=== PATIENT | female | born 1980 | race Caucasian/White ===

== ENCOUNTER 2018-08-18 04:40 | Emergency (ER) | payer MEDICAID ==
[~2018-08-18] VITALS: Ht 167.6 cm; Wt 116.6 kg
[2018-08-18 04:43] VITALS: BP 128/88
[2018-08-18] MEDS ORDERED: NACL 0.9% 1,000 ML IV ONE (05:05)
[2018-08-18] MEDS ORDERED: MORPHINE SULFATE 4 MG/ML SYR IVP ONE ×2 (05:05→06:05)
[2018-08-18 06:39] VITALS: BP 136/87
== END 2018-08-18 06:35 | disposition home or self-care (01) ==
LOC: MED 04:40
DX: R10.9 Unspecified abdominal pain (principal); R11.2 Nausea with vomiting, unspecified; E11.9 Type 2 diabetes mellitus without complications; Z88.6 Allergy status to analgesic agent
CPT/HCPCS: 81002; 81025; 82948; 96361; 96374; 96376; 99284; J2270

== ENCOUNTER 2018-08-22 17:43 | Emergency (ER) | payer MEDICAID ==
[~2018-08-22] VITALS: Ht 167.6 cm; Wt 107.0 kg
[2018-08-22 17:48] VITALS: BP 122/75
[2018-08-22 20:04] LABS: APPEARANCE,URINE CLEAR (CLEAR); COLOR,URINE LIGHT YELLOW (YELLOW); PH,URINE 7.5 (5.0-9.0)
[2018-08-22 20:05] LABS: BILIRUBIN,URINE NEGATIVE (NEGATIVE); BLOOD, URINE 2+ (NEGATIVE); LEUKOCYTE ESTERASE ,URINE NEGATIVE (NEGATIVE); NITRITE, URINE NEGATIVE (NEGATIVE); UGLUCOSE 3+ (NEGATIVE)
[2018-08-22 20:13] LABS: RBC,URINE 80-100 /HPF (0-5)
[2018-08-22] MEDS ORDERED: INSULIN REGULAR, HUMAN 100 UNIT/ML VIAL IV ONE ×2 (20:20→21:30)
[2018-08-22] MEDS ORDERED: MORPHINE SULFATE 4 MG/ML SYR IVP ONE ×2 (20:20→22:30)
[2018-08-22] MEDS ORDERED: ONDANSETRON 4 MG/2 ML VIAL IVP ONE (20:20)
[2018-08-22] MEDS ORDERED: NACL 0.9% 1,000 ML IV ONE (20:20)
[2018-08-22 21:22] LABS: BASOPHILS # (AUTO) 0.1 K/uL (0.00-0.22); BASOPHILS % (AUTO) 1.3 % (0.0-2.0); EOSINOPHILS # (AUTO) 0.1 K/uL (0-0.4); EOSINOPHILS % (AUTO) 1.3 % (0.0-4.0); HEMATOCRIT 37.5 % (36-48); LYMPHOCYTES # (AUTO) 1.4 K/uL (2.5-16.5); LYMPHOCYTES % (AUTO) 24.5 % (20.5-51.1); MEAN CORPUSCULAR HEMOGLOBIN 23 pg (27-31); MEAN CORPUSCULAR HGB CONC 32 g/dL (33-37); MEAN CORPUSCULAR VOLUME 73.3 fL (80-94); MONOCYTES # (AUTO) 0.4 K/uL (0.8-1.0); MONOCYTES % (AUTO) 6.6 % (1.7-9.3); NEUTROPHILS # (AUTO) 3.9 K/uL (1.8-7.7); NEUTROPHILS % (AUTO) 66.3 % (42.2-75.2); PLATELET COUNT (AUTO) 153 K/uL (140-450); RED BLOOD CELL COUNT(AUTO) 5.11 MIL/uL (4.20-5.40); RED CELL DISTRIBUTION WIDTH 16.7 % (11.6-13.7); WHITE BLOOD COUNT (AUTO) 5.9 K/uL (4.8-10.8)
[2018-08-22 21:32] LABS: ANION GAP 10.2 (8-16); CARBON DIOXIDE 27.7 mmol/L (21-32); CREATININE 0.8 mg/dL (0.6-1.3); POTASSIUM 3.9 mmol/L (3.5-5.1)
[2018-08-22 21:39] LABS: ALBUMIN 3.5 g/dL (3.4-5.0); TOTAL BILIRUBIN 0.4 mg/dL (0.0-1.0)
[2018-08-22 23:15] VITALS: BP 128/82
== END 2018-08-22 23:15 | disposition home or self-care (01) ==
LOC: MED 17:46
DX: N13.2 Hydronephrosis with renal and ureteral calculous obstruction (principal); E11.65 Type 2 diabetes mellitus with hyperglycemia; Z88.6 Allergy status to analgesic agent
CPT/HCPCS: 36415; 74176; 80053; 81001; 81025; 82948; 85025; 87086; 96361; 96374; 96375; 96376; 99285; J1815; J2270; J2405

== ENCOUNTER 2018-09-21 00:45 | Emergency (ER) | payer MEDICAID ==
[~2018-09-21] VITALS: Ht 167.6 cm; Wt 116.6 kg
[2018-09-21 00:49] VITALS: BP 116/79
[2018-09-21 01:56] LABS: BASOPHILS # (AUTO) 0.1 K/uL (0.00-0.22); BASOPHILS % (AUTO) 1.4 % (0.0-2.0); EOSINOPHILS # (AUTO) 0.1 K/uL (0-0.4); EOSINOPHILS % (AUTO) 1.9 % (0.0-4.0); HEMATOCRIT 35.1 % (36-48); HEMOGLOBIN 11.2 g/dL (12.0-16.0); LYMPHOCYTES # (AUTO) 1.7 K/uL (2.5-16.5); LYMPHOCYTES % (AUTO) 34.7 % (20.5-51.1); MEAN CORPUSCULAR HEMOGLOBIN 23 pg (27-31); MEAN CORPUSCULAR HGB CONC 32 g/dL (33-37); MEAN CORPUSCULAR VOLUME 72.9 fL (80-94); MONOCYTES # (AUTO) 0.5 K/uL (0.8-1.0); MONOCYTES % (AUTO) 9.5 % (1.7-9.3); NEUTROPHILS # (AUTO) 2.5 K/uL (1.8-7.7); NEUTROPHILS % (AUTO) 52.5 % (42.2-75.2); PLATELET COUNT (AUTO) 150 K/uL (140-450); RED BLOOD CELL COUNT(AUTO) 4.81 MIL/uL (4.20-5.40); RED CELL DISTRIBUTION WIDTH 16.2 % (11.6-13.7); WHITE BLOOD COUNT (AUTO) 4.8 K/uL (4.8-10.8)
[2018-09-21] MEDS: MORPHINE SULFATE 4 MG/ML SYR IVP ONE (02:02)
[2018-09-21] MEDS: ONDANSETRON 4 MG/2 ML VIAL IVP ONE (02:02)
[2018-09-21] MEDS: NACL 0.9% 1,000 ML IV ONE (02:02)
[2018-09-21 02:08] LABS: ANION GAP 10.6 (8-16); CARBON DIOXIDE 30.6 mmol/L (21-32); POTASSIUM 4.2 mmol/L (3.5-5.1)
[2018-09-21 02:54] VITALS: BP 116/79
[2018-09-21 03:16] LABS: APPEARANCE,URINE SL CLOUDY (CLEAR); BILIRUBIN,URINE NEGATIVE (NEGATIVE); BLOOD, URINE LARGE (NEGATIVE); COLOR,URINE YELLOW (YELLOW); LEUKOCYTE ESTERASE ,URINE NEGATIVE (NEGATIVE); NITRITE, URINE NEGATIVE (NEGATIVE); UGLUCOSE >=1000 (NEGATIVE)
[2018-09-21 03:19] LABS: RBC,URINE TOO NUMEROUS TO COUN /HPF (0-5); WBC,URINE TOO MANY TO COUNT /HPF (0-5)
== END 2018-09-21 02:55 | disposition home or self-care (01) ==
LOC: MED 00:45
DX: N20.2 Calculus of kidney with calculus of ureter (principal); F11.10 Opioid abuse, uncomplicated; E11.9 Type 2 diabetes mellitus without complications; Z88.6 Allergy status to analgesic agent
CPT/HCPCS: 36415; 80048; 81001; 81025; 85025; 87086; 96361; 96374; 96375; 99283; J2270; J2405

== ENCOUNTER 2018-10-01 21:42 | Emergency (ER) | payer MEDICAID ==
[~2018-10-01] VITALS: Ht 167.6 cm; Wt 116.6 kg
[2018-10-01 22:00] VITALS: BP 139/90
--- NOTE | 2018-10-01 22:00 | NUR ---
TO BED # 10 AMBULATORY , REPORT GIVEN TO DEISI ZEPEDA
--- NOTE | 2018-10-01 22:25 | NUR ---
DR PIZANO AT BEDSIDE EVALUATING PT .
--- NOTE | 2018-10-01 22:25 | NUR ---
PT BIB SELF C/O LEFT LOWER FLANK PAIN AND N/V FOR THE PAST 2 HOURS. PT ALSO HAS URINARY FREQUENCY AND BURNING. NO TRAUMA TO AFFECTED AREA. PT SITTING IN BED, APPEARS TO BE IN NO ACUTE DISTRESS. PMH KIDNEY STONES , DM
[2018-10-01] MEDS ORDERED: NACL 0.9% 1,000 ML IV ONE (22:32)
[2018-10-01] MEDS ORDERED: ONDANSETRON 4 MG/2 ML VIAL IVP ONE (22:35)
[2018-10-01] MEDS ORDERED: MORPHINE SULFATE 4 MG/ML SYR IVP ONE (22:35)
[2018-10-01] MEDS ORDERED: diphenhydrAMINE 50 MG/ML VIAL IVP ONE (22:35)
[2018-10-01] MEDS ORDERED: KETAMINE 10 MG/ML UD SYR **ER IVP ONE (23:30)
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
--- NOTE | 2018-10-02 00:59 | NUR ---
Patient discharged with v/s stable. Written and verbal after care instructions given and explained. Patient alert, oriented and verbalized understanding of instructions. Ambulatory with steady gait. All questions addressed prior to discharge. ID band removed. Patient advised to follow up with PMD. Rx of TYLENOL, ZOFRAN given. Patient educated on indication of medication including possible reaction and side effects. Opportunity to ask questions provided and answered.
[2018-10-02 01:00] VITALS: BP 138/91
== END 2018-10-02 01:00 | disposition home or self-care (01) ==
LOC: MED 21:42
DX: R10.9 Unspecified abdominal pain (principal); R35.8 Other polyuria; R11.2 Nausea with vomiting, unspecified; Z88.8 Allergy status to other drugs, medicaments and biological substances
CPT/HCPCS: 81002; 81025; 96361; 96374; 96375; 99283; J1200; J2270; J2405; J7030

== ENCOUNTER 2021-03-22 12:44 | Emergency (ER) | payer MEDICAID ==
[~2021-03-22] VITALS: Ht 167.6 cm; Wt 111.1 kg
[2021-03-22 12:48] VITALS: BP 124/78
[2021-03-22] MEDS ORDERED: MORPHINE SULFATE 4 MG/ML SYR IVP ONE (12:55)
[2021-03-22] MEDS ORDERED: NACL 0.9% 1,000 ML IV ONE ×2 (12:55→15:00)
[2021-03-22 13:19] LABS: APPEARANCE,URINE HAZY (CLEAR); BILIRUBIN,URINE NEGATIVE (NEGATIVE); BLOOD, URINE NEGATIVE (NEGATIVE); COLOR,URINE YELLOW (YELLOW); NITRITE, URINE POSITIVE (NEGATIVE); PH,URINE 6.5 (5.0-9.0); UGLUCOSE 3+ (NEGATIVE)
[2021-03-22 13:24] LABS: RBC,URINE 0-5 /HPF (0-5)
[2021-03-22 13:25] LABS: LEUKOCYTE ESTERASE ,URINE 1+ (NEGATIVE)
[2021-03-22 13:25] LABS: BASOPHILS % (AUTO) 0.6 % (0.0-2.0); EOSINOPHILS # (AUTO) 0.1 K/uL (0-0.4); EOSINOPHILS % (AUTO) 1.3 % (0.0-4.0); HEMATOCRIT 37.1 % (36-48); LYMPHOCYTES % (AUTO) 16.2 % (20.5-51.1); MEAN CORPUSCULAR HEMOGLOBIN 23 pg (27-31); MEAN CORPUSCULAR HGB CONC 32 g/dL (33-37); MEAN CORPUSCULAR VOLUME 72.3 fL (80-94); MONOCYTES # (AUTO) 0.4 K/uL (0.8-1.0); MONOCYTES % (AUTO) 5.8 % (1.7-9.3); NEUTROPHILS # (AUTO) 4.9 K/uL (1.8-7.7); NEUTROPHILS % (AUTO) 76.1 % (42.2-75.2); PLATELET COUNT (AUTO) 183 K/uL (140-450); RED BLOOD CELL COUNT(AUTO) 5.13 MIL/uL (4.20-5.40); RED CELL DISTRIBUTION WIDTH 18.5 % (11.6-13.7); WHITE BLOOD COUNT (AUTO) 6.4 K/uL (4.8-10.8)
[2021-03-22 13:36] LABS: ANION GAP 14.7 (8-16); CARBON DIOXIDE 25.6 mmol/L (21-32); CREATININE 1.1 mg/dL (0.6-1.3); POTASSIUM 4.3 mmol/L (3.5-5.1)
[2021-03-22] MEDS ORDERED: ONDANSETRON 4 MG ODT PO ONE (14:55)
[2021-03-22] MEDS ORDERED: HYDROcodone/APAP 5/325 MG 1 TAB TAB PO ONE (14:55)
[2021-03-22] MEDS ORDERED: INSULIN REGULAR, HUMAN 100 UNIT/ML VIAL SUBQ ONE (15:00)
[2021-03-22] MEDS ORDERED: cefTRIAXone 1,000 MG VIAL ONE (15:14)
[2021-03-22] MEDS ORDERED: SULF-59 PO (17:11)
[2021-03-22] MEDS ORDERED: ONDA-24 PO (17:11)
[2021-03-22] MEDS ORDERED: ACET-8386 PO (17:11)
[2021-03-22 17:28] VITALS: BP 123/84
[2021-03-23] MEDS ORDERED: INSU100I7 SQ (13:15)
== END 2021-03-22 17:28 | disposition home or self-care (01) ==
LOC: MED 12:44
DX: N39.0 Urinary tract infection, site not specified (principal); N23 Unspecified renal colic; E11.9 Type 2 diabetes mellitus without complications; Z87.442 Personal history of urinary calculi; Z98.890 Other specified postprocedural states; Z88.6 Allergy status to analgesic agent; Z88.8 Allergy status to other drugs, medicaments and biological substances
CPT/HCPCS: 36415; 76770; 80048; 81001; 81025; 85025; 87040; 87086; 96361; 96365; 96372; 96375; 99285; J0696; J1815; J2270; J7030; Q0162

== ENCOUNTER 2021-03-23 10:48 | Emergency (ER) | payer MEDICAID ==
[~2021-03-23] VITALS: Ht 167.6 cm; Wt 111.1 kg
[~2021-03-23 10:48] MED LIST: ACET-8386 PO; ONDA-24 PO; SULF-59 PO
--- NOTE | 2021-03-23 10:48 | NUR ---
Patient BIBA BLS, transferred to bed 4. RN evaluating the patient at bedside.
[2021-03-23 10:55] VITALS: BP 114/65
--- NOTE | 2021-03-23 10:55 | NUR ---
41 y/o F BIBA with c/c left flank pain and dysuria. Patient states she was seen here yesterday and diagnosed with kidney stones and prescribed antibiotics and Pollock for pain management. Patient returned today stating worsening symptoms; states she has not been able to get her prescription filled. Patient reports left flank pain 8/10, stabbing/constant, non-radiating. Reports it feels similar to kidney stones in the past and alleviates with laying down. Pt states associated nausea, vomiting x 2 episodes today. Denies SOB, chest pain, dizziness, fatigue, headache, cough. personnel monitor in place. Respirations even/unlabored. Bed locked in lowest position, side rails x1, call light in reach. PMH: Kidney stones, DM Meds: Insulin basaglar, metformin, Insulin Humalin R Allergies: Ibuprofen, ketorolac Sx: 3 lithotripsies
[2021-03-23] MEDS ORDERED: MORPHINE SULFATE 4 MG/ML SYR IVP ONE (11:00)
[2021-03-23] MEDS ORDERED: NACL 0.9% 1,000 ML IV SCH (11:00)
[2021-03-23] MEDS ORDERED: ONDANSETRON 4 MG/2 ML VIAL IVP ONE (11:00)
--- NOTE | 2021-03-23 11:11 | NUR ---
Lab at bedside for blood draw.
--- NOTE | 2021-03-23 11:11 | NUR ---
UA sample collected, handed to CPT Laura at ER bedside.
--- NOTE | 2021-03-23 11:14 | NUR ---
Dr. Zabala is evaluating the patient at bedside.
[2021-03-23 11:18] LABS: BASOPHILS # (AUTO) 0.1 K/uL (0.00-0.22); BASOPHILS % (AUTO) 0.9 % (0.0-2.0); EOSINOPHILS # (AUTO) 0.1 K/uL (0-0.4); EOSINOPHILS % (AUTO) 1.6 % (0.0-4.0); HEMATOCRIT 36.6 % (36-48); HEMOGLOBIN 11.8 g/dL (12.0-16.0); LYMPHOCYTES # (AUTO) 1.1 K/uL (2.5-16.5); LYMPHOCYTES % (AUTO) 16.2 % (20.5-51.1); MEAN CORPUSCULAR HEMOGLOBIN 23 pg (27-31); MEAN CORPUSCULAR HGB CONC 32 g/dL (33-37); MONOCYTES # (AUTO) 0.4 K/uL (0.8-1.0); NEUTROPHILS % (AUTO) 75.3 % (42.2-75.2); PLATELET COUNT (AUTO) 166 K/uL (140-450); RED BLOOD CELL COUNT(AUTO) 5.02 MIL/uL (4.20-5.40); RED CELL DISTRIBUTION WIDTH 18.8 % (11.6-13.7); WHITE BLOOD COUNT (AUTO) 6.7 K/uL (4.8-10.8)
[2021-03-23 11:18] LABS: BILIRUBIN,URINE NEGATIVE (NEGATIVE); BLOOD, URINE NEGATIVE (NEGATIVE); COLOR,URINE YELLOW (YELLOW); NITRITE, URINE NEGATIVE (NEGATIVE); PH,URINE 6.5 (5.0-9.0); UGLUCOSE 3+ (NEGATIVE)
--- NOTE | 2021-03-23 11:20 | NUR ---
Patient transported to CT via gurney.
[2021-03-23 11:23] LABS: APPEARANCE,URINE SLIGHTLY HAZY (CLEAR); LEUKOCYTE ESTERASE ,URINE 1+ (NEGATIVE); RBC,URINE 0-5 /HPF (0-5)
[2021-03-23 11:30] LABS: ANION GAP 13.1 (8-16); CREATININE 1.1 mg/dL (0.6-1.3); POTASSIUM 4.1 mmol/L (3.5-5.1)
--- NOTE | 2021-03-23 11:30 | NUR ---
Patient returned from CT via [facility].
[2021-03-23] MEDS ORDERED: INSULIN REGULAR, HUMAN 100 UNIT/ML VIAL SUBQ ONE (11:50)
[2021-03-23] MEDS ORDERED: cefTRIAXone 1,000 MG VIAL ONE (11:53)
[2021-03-23] MEDS ORDERED: fentaNYL citrate 0.05 MG/ML VIAL IVP ONE (12:15)
--- NOTE | 2021-03-23 12:42 | NUR ---
DR JOY AT BEDSIDE RE-EVALUATING PATIENT
--- NOTE | 2021-03-23 12:54 | NUR ---
Patient states positive relief after Fentanyl; 5/10 at this time no nausea. rooming house operator remains in place. Bed locked in lowest position, side rails x 1, call light in reach.
--- NOTE | 2021-03-23 12:55 | NUR ---
Pt states ran out of Insulin Basaglar 25 Units before bedtime; requesting prescrption. Dr. Zabala made aware.
[2021-03-23] MEDS ORDERED: INSU100I7 SQ (13:15)
[2021-03-23 13:40] VITALS: BP 113/79
--- NOTE | 2021-03-23 13:40 | NUR ---
Patient discharged with v/s stable. Written and verbal after care instructions given and explained. Patient alert, oriented and verbalized understanding of instructions. Ambulatory with steady gait. All questions addressed prior to discharge. ID band removed. Patient advised to follow up with PMD. Rx of Insulin Glargine given. Patient educated on indication of medication including possible reaction and side effects. Opportunity to ask questions provided and answered.
== END 2021-03-23 13:40 | disposition home or self-care (01) ==
LOC: MED 10:48
DX: N20.0 Calculus of kidney (principal); E11.9 Type 2 diabetes mellitus without complications; L98.8 Other specified disorders of the skin and subcutaneous tissue; Z87.442 Personal history of urinary calculi; Z79.899 Other long term (current) drug therapy; Z98.890 Other specified postprocedural states; Z88.8 Allergy status to other drugs, medicaments and biological substances
CPT/HCPCS: 36415; 74176; 80048; 81001; 85025; 87040; 96361; 96365; 96372; 96375; 99284; J0696; J1815; J2270; J2405; J3010; J7030

== ENCOUNTER 2021-04-05 12:48 | Emergency (ER) | payer MEDICAID ==
[~2021-04-05] VITALS: Ht 167.6 cm; Wt 113.9 kg
[~2021-04-05 12:48] MED LIST changes: +INSU100I7 SQ
[2021-04-05 12:49] VITALS: BP 142/86
--- NOTE | 2021-04-05 12:49 | NUR ---
Patient to bed 10 by [facility] ambulance.
--- NOTE | 2021-04-05 13:17 | NUR ---
41 YEAR OLD FEMALE COMPLAINS OF LEFT FLANK PAIN X 1 HOUR. PT DENIES CHANGES IN URINATION, DENIES N/V/D. PT STATES SHE HAS HISTORY OF KIDNEY STONES AND FEELING PREVIOUS SIMILAR SYMPTOMS. PT AOX4, BREATHING EVEN AND UNLABORED, SKIN WARM AND DRY. BED IN LOWEST POSITION, LOCKED, BED RAIL UPX1. PMH - DM2, KIDNEY STONES, NEUROPATHY ALLERGIES - MOTRIN, TORADOL
[2021-04-05] MEDS ORDERED: ONDANSETRON 4 MG ODT PO ONE (13:20)
[2021-04-05] MEDS ORDERED: HYDROcodone/APAP 5/325 MG 1 TAB TAB PO ONE (13:20)
[2021-04-05 13:33] LABS: BASOPHILS # (AUTO) 0.1 K/uL (0.00-0.22); BASOPHILS % (AUTO) 1.1 % (0.0-2.0); EOSINOPHILS # (AUTO) 0.1 K/uL (0-0.4); EOSINOPHILS % (AUTO) 2.2 % (0.0-4.0); HEMOGLOBIN 11.3 g/dL (12.0-16.0); LYMPHOCYTES # (AUTO) 1.1 K/uL (2.5-16.5); LYMPHOCYTES % (AUTO) 21.3 % (20.5-51.1); MEAN CORPUSCULAR HEMOGLOBIN 24 pg (27-31); MEAN CORPUSCULAR HGB CONC 32 g/dL (33-37); MEAN CORPUSCULAR VOLUME 72.7 fL (80-94); MONOCYTES # (AUTO) 0.3 K/uL (0.8-1.0); MONOCYTES % (AUTO) 5.9 % (1.7-9.3); NEUTROPHILS # (AUTO) 3.4 K/uL (1.8-7.7); NEUTROPHILS % (AUTO) 69.5 % (42.2-75.2); PLATELET COUNT (AUTO) 170 K/uL (140-450); RED BLOOD CELL COUNT(AUTO) 4.81 MIL/uL (4.20-5.40); RED CELL DISTRIBUTION WIDTH 18.6 % (11.6-13.7); WHITE BLOOD COUNT (AUTO) 4.9 K/uL (4.8-10.8)
[2021-04-05 13:40] LABS: ANION GAP 14.9 (8-16); CARBON DIOXIDE 24.3 mmol/L (21-32); POTASSIUM 4.2 mmol/L (3.5-5.1)
[2021-04-05 13:46] LABS: ALBUMIN 3.2 g/dL (3.4-5.0); TOTAL BILIRUBIN 0.4 mg/dL (0.0-1.0)
[2021-04-05] MEDS ORDERED: MIRABULK PO (14:02)
[2021-04-05] MEDS ORDERED: ACET-8386 PO (14:24)
[2021-04-05 14:32] VITALS: BP 142/86
[2021-04-05] MEDS ORDERED: TAMS0.4C96 PO (14:33)
--- NOTE | 2021-04-05 14:33 | NUR ---
Patient discharged with v/s stable. Written and verbal after care instructions about flank pain given and explained. Patient alert, oriented and verbalized understanding of instructions. Ambulatory with steady gait. All questions addressed prior to discharge. ID band removed. Patient advised to follow up with PMD. Rx of norco given. Patient educated on indication of medication including possible reaction and side effects. Opportunity to ask questions provided and answered.
== END 2021-04-05 14:33 | disposition home or self-care (01) ==
LOC: MED 12:48
DX: N12 Tubulo-interstitial nephritis, not specified as acute or chronic (principal); N20.0 Calculus of kidney; Z76.0 Encounter for issue of repeat prescription
CPT/HCPCS: 36415; 80053; 81002; 81025; 85025; 99283; Q0162

== ENCOUNTER 2021-04-14 12:05 | Emergency (ER) | payer MEDICAID ==
[~2021-04-14] VITALS: Ht 180.3 cm; Wt 112.9 kg
[~2021-04-14 12:05] MED LIST changes: +TAMS0.4C96 PO
--- NOTE | 2021-04-14 12:05 | NUR ---
PATIENT TAKEN TO ER BED 6 BY EMS
--- NOTE | 2021-04-14 12:08 | NUR ---
41 Y/O FEMALE BIBA C/O LEFT FLANK PAIN WITH DYSURIA SINCE TODAY. PT STATES CHRONIC FLANK PAIN BUT WORSE TODAY. STATES 9/10 SHARP PAIN IN LEFT FLANK WITH PAINFUL URINATION. PT STATES NAUSEA WITH ONE EPISODE OF VOMITING TODAY. SKIN WARM, DRY, INTACT. VSS MEDHX: DM, ANXIETY, DEPRESSION
[2021-04-14 12:10] VITALS: BP 130/70
--- NOTE | 2021-04-14 12:45 | NUR ---
DR MESA AT BEDSIDE EVALUATING PATIENT
[2021-04-14] MEDS ORDERED: MORPHINE SULFATE 4 MG/ML SYR IVP ONE (12:50)
[2021-04-14] MEDS ORDERED: ONDANSETRON 4 MG/2 ML VIAL IVP ONE (12:50)
[2021-04-14] MEDS ORDERED: NACL 0.9% 1,000 ML IV ONE (12:50)
[2021-04-14 13:23] LABS: BASOPHILS % (AUTO) 0.9 % (0.0-2.0); EOSINOPHILS # (AUTO) 0.1 K/uL (0-0.4); EOSINOPHILS % (AUTO) 2.9 % (0.0-4.0); HEMOGLOBIN 10.9 g/dL (12.0-16.0); LYMPHOCYTES # (AUTO) 1.4 K/uL (2.5-16.5); LYMPHOCYTES % (AUTO) 30.1 % (20.5-51.1); MEAN CORPUSCULAR HEMOGLOBIN 24 pg (27-31); MEAN CORPUSCULAR HGB CONC 33 g/dL (33-37); MEAN CORPUSCULAR VOLUME 72.5 fL (80-94); MONOCYTES # (AUTO) 0.4 K/uL (0.8-1.0); MONOCYTES % (AUTO) 7.8 % (1.7-9.3); NEUTROPHILS # (AUTO) 2.8 K/uL (1.8-7.7); NEUTROPHILS % (AUTO) 58.3 % (42.2-75.2); PLATELET COUNT (AUTO) 142 K/uL (140-450); RED BLOOD CELL COUNT(AUTO) 4.55 MIL/uL (4.20-5.40); RED CELL DISTRIBUTION WIDTH 18.5 % (11.6-13.7); WHITE BLOOD COUNT (AUTO) 4.8 K/uL (4.8-10.8)
[2021-04-14 13:39] LABS: ALBUMIN 3.3 g/dL (3.4-5.0); ANION GAP 10.3 (8-16); CARBON DIOXIDE 28.8 mmol/L (21-32); POTASSIUM 4.1 mmol/L (3.5-5.1); TOTAL BILIRUBIN 0.3 mg/dL (0.0-1.0)
[2021-04-14] MEDS ORDERED: fentaNYL citrate 0.05 MG/ML VIAL IVP ONE (14:35)
[2021-04-14 14:49] LABS: BILIRUBIN,URINE NEGATIVE (NEGATIVE); BLOOD, URINE NEGATIVE (NEGATIVE); COLOR,URINE YELLOW (YELLOW); LEUKOCYTE ESTERASE ,URINE TRACE (NEGATIVE); NITRITE, URINE NEGATIVE (NEGATIVE); PH,URINE 5.5 (5.0-9.0); UGLUCOSE 3+ (NEGATIVE)
[2021-04-14 14:53] LABS: APPEARANCE,URINE HAZY (CLEAR)
[2021-04-14 14:57] LABS: RBC,URINE NONE SEEN /HPF (0-5); WBC,URINE 60-80 /HPF (0-5)
[2021-04-14] MEDS ORDERED: PRED20TA5 PO (15:15)
[2021-04-14] MEDS ORDERED: ACET-5629 PO (15:15)
[2021-04-14 15:22] VITALS: BP 130/70
--- NOTE | 2021-04-14 15:23 | NUR ---
Patient discharged with v/s stable. Written and verbal after care instructions given and explained. Patient alert, oriented and verbalized understanding of instructions. Ambulatory with to car. All questions addressed prior to discharge. ID band removed. Patient advised to follow up with PMD. Rx of OXYCODONE, PREDNISONE given. Patient educated on indication of medication including possible reaction and side effects. Opportunity to ask questions provided and answered.
== END 2021-04-14 15:23 | disposition home or self-care (01) ==
LOC: MED 12:05
DX: M54.9 Dorsalgia, unspecified (principal); E11.9 Type 2 diabetes mellitus without complications; F41.9 Anxiety disorder, unspecified; F32.9 Major depressive disorder, single episode, unspecified; Z90.49 Acquired absence of other specified parts of digestive tract; Z79.899 Other long term (current) drug therapy; Z88.6 Allergy status to analgesic agent; Z88.8 Allergy status to other drugs, medicaments and biological substances
CPT/HCPCS: 36415; 74176; 80053; 81001; 81025; 84702; 85025; 87086; 96361; 96374; 96375; 99284; J2270; J2405; J3010; J7030

== ENCOUNTER 2021-04-25 10:46 | Emergency (ER) | payer MEDICAID ==
[~2021-04-25] VITALS: Ht 167.6 cm; Wt 113.4 kg
[~2021-04-25 10:46] MED LIST changes: +ACET-5629 PO; +PRED20TA5 PO
[2021-04-25 10:54] VITALS: BP 119/81
--- NOTE | 2021-04-25 10:54 | NUR ---
Patient BIBA BLS, transferred to bed 4. RN evaluating the patient at bedside.
--- NOTE | 2021-04-25 11:10 | NUR ---
41 YEAR OLD FEMALE COMPLAINS OF LOWER BACK PAIN THAT RADIATES TO FLANK AREA. PT STATES HISTORY OF KIDNEY STONES. PT DENIES BLOOD IN URINE. PT AOX4, BREATHING EVEN AND UNLABORED, SKIN WARM AND DRY. BED IN LOWEST POSITION, LOCKED, BED RAIL UPX1. PMH - KIDNEY STONES, DM2, NEUROPATHY ALLERGIES - IBUPROFEN, TORADOL
[2021-04-25] MEDS ORDERED: ACETAMINOPHEN 325 MG TAB PO ONE (11:40)
--- NOTE | 2021-04-25 11:49 | NUR ---
PT REFUSED TYLENOL, ERMD MADE AWARE
--- NOTE | 2021-04-25 11:51 | NUR ---
Neena scruggs in [facility] - 04/25/21 at 1152 by MMTHEM Patient taken to CT scan via wheelchair by tech.
--- NOTE | 2021-04-25 11:52 | NUR ---
PT REFUSED CT, ERMD MADE AWARE
--- NOTE | 2021-04-25 11:52 | NUR ---
Note alanray in EDM - 04/25/21 at 1154 by MEDJElke 41 YEAR OLD FEMALE COMPLAINS OF LOWER BACK PAIN THAT RADIATES TO FLANK AREA. PT STATES HISTORY OF KIDNEY STONES. PT DENIES BLOOD IN URINE. PT AOX4, BREATHING EVEN AND UNLABORED, SKIN WARM AND DRY. BED IN LOWEST POSITION, LOCKED, BED RAIL UPX1. PMH - KIDNEY STONES, DM2, NEUROPATHY ALLERGIES - IBUPROFEN, TORADOL
[2021-04-25] MEDS ORDERED: NACL 0.9% 1,000 ML IV ONE (12:10)
[2021-04-25] MEDS ORDERED: ONDANSETRON 4 MG/2 ML VIAL IVP ONE (12:10)
[2021-04-25] MEDS ORDERED: MORPHINE SULFATE 4 MG/ML SYR IVP ONE ×3 (12:10→15:20)
[2021-04-25 12:42] LABS: BASOPHILS % (AUTO) 0.8 % (0.0-2.0); EOSINOPHILS # (AUTO) 0.1 K/uL (0-0.4); HEMATOCRIT 34.8 % (36-48); HEMOGLOBIN 11.3 g/dL (12.0-16.0); MEAN CORPUSCULAR HEMOGLOBIN 24 pg (27-31); MEAN CORPUSCULAR HGB CONC 33 g/dL (33-37); MEAN CORPUSCULAR VOLUME 73.7 fL (80-94); MONOCYTES # (AUTO) 0.4 K/uL (0.8-1.0); MONOCYTES % (AUTO) 8.2 % (1.7-9.3); NEUTROPHILS # (AUTO) 3.6 K/uL (1.8-7.7); PLATELET COUNT (AUTO) 176 K/uL (140-450); RED BLOOD CELL COUNT(AUTO) 4.72 MIL/uL (4.20-5.40); RED CELL DISTRIBUTION WIDTH 18.5 % (11.6-13.7); WHITE BLOOD COUNT (AUTO) 5.1 K/uL (4.8-10.8)
[2021-04-25 12:45] LABS: APPEARANCE,URINE CLEAR (CLEAR); BILIRUBIN,URINE NEGATIVE (NEGATIVE); BLOOD, URINE NEGATIVE (NEGATIVE); COLOR,URINE YELLOW (YELLOW); LEUKOCYTE ESTERASE ,URINE NEGATIVE (NEGATIVE); NITRITE, URINE NEGATIVE (NEGATIVE); PH,URINE 6.5 (5.0-9.0); UGLUCOSE 3+ (NEGATIVE)
[2021-04-25 12:47] LABS: ALBUMIN 3.6 g/dL (3.4-5.0); ANION GAP 9.8 (8-16); CARBON DIOXIDE 27.6 mmol/L (21-32); CREATININE 0.9 mg/dL (0.6-1.3); POTASSIUM 4.4 mmol/L (3.5-5.1); TOTAL BILIRUBIN 0.3 mg/dL (0.0-1.0)
[2021-04-25 12:54] LABS: RBC,URINE NONE SEEN /HPF (0-5)
--- NOTE | 2021-04-25 13:00 | NUR ---
PT ALERT AND AWAKE, BREATHING EVEN AND UNLABORED. NO DISTRESS NOTED.
--- NOTE | 2021-04-25 13:01 | NUR ---
Dr. Engel is evaluating the patient at bedside.
--- NOTE | 2021-04-25 14:00 | NUR ---
PT ALERT AND AWAKE, BREATHING EVEN AND UNLABORED. NO DISTRESS NOTED.
[2021-04-25] MEDS ORDERED: ACET-8386 PO (15:05)
[2021-04-25] MEDS ORDERED: TAMS0.4C96 PO (15:05)
[2021-04-25] MEDS ORDERED: MORPHINE SULFATE 4 MG/ML SYR ONE (15:20)
[2021-04-25 15:45] VITALS: BP 119/81
--- NOTE | 2021-04-25 15:45 | NUR ---
Patient discharged with v/s stable. Written and verbal after care instructions about kidney stones given and explained. Patient alert, oriented and verbalized understanding of instructions. Ambulatory with steady gait. All questions addressed prior to discharge. ID band removed. Patient advised to follow up with PMD. Rx of tamsulosin, norco given. Patient educated on indication of medication including possible reaction and side effects. Opportunity to ask questions provided and answered.
--- NOTE | 2021-04-25 15:46 | NUR ---
Note sheba in EDM - 04/25/21 at 1547 by MEDJJ 1300PT ALERT AND AWAKE, BREATHING EVEN AND UNLABORED. NO DISTRESS NOTED.
--- NOTE | 2021-04-29 09:48 | NUR ---
DISCREPANCY CALL BACK LOG- ESCHERICHIA COLI FOUND IN URINE. DR ESCOBAR PRESCRIBED BACTRIM DS 1 TAB PO BID #[id number] (7 DAYS) ATTEMPTED TO CALL NUMBER ON FILE- INVALID. PT IS HOMESSLESS AND GAVE HOPE FOR HOME ADDRESS, ATTEMPTED TO CALL, NO ANSWER. ATTEMPTED TO CALL NEXT OF KIN- NO ANSWER, LEFT MESSAGE.
== END 2021-04-25 15:45 | disposition home or self-care (01) ==
LOC: MED 10:46
DX: N20.0 Calculus of kidney (principal); E11.9 Type 2 diabetes mellitus without complications; Z87.442 Personal history of urinary calculi; Z88.6 Allergy status to analgesic agent; Z88.8 Allergy status to other drugs, medicaments and biological substances; Z79.899 Other long term (current) drug therapy; Z90.49 Acquired absence of other specified parts of digestive tract; Z98.890 Other specified postprocedural states
CPT/HCPCS: 36415; 74176; 80053; 81001; 81025; 83690; 85025; 87086; 96361; 96374; 96375; 96376; 99284; J2270; J2405; J7030

== ENCOUNTER 2021-05-03 02:29 | Emergency (ER) | payer MEDICAID ==
[~2021-05-03] VITALS: Ht 167.6 cm; Wt 113.4 kg
[2021-05-03 02:31] VITALS: BP 124/77
[2021-05-03 03:05] LABS: BILIRUBIN,URINE NEGATIVE (NEGATIVE); BLOOD, URINE NEGATIVE (NEGATIVE); COLOR,URINE YELLOW (YELLOW); LEUKOCYTE ESTERASE ,URINE TRACE (NEGATIVE); NITRITE, URINE POSITIVE (NEGATIVE); PH,URINE 6.5 (5.0-9.0); UGLUCOSE 3+ (NEGATIVE)
[2021-05-03 03:07] LABS: BASOPHILS # (AUTO) 0.1 K/uL (0.00-0.22); EOSINOPHILS # (AUTO) 0.1 K/uL (0-0.4); EOSINOPHILS % (AUTO) 2.3 % (0.0-4.0); HEMOGLOBIN 12.5 g/dL (12.0-16.0); LYMPHOCYTES # (AUTO) 1.9 K/uL (2.5-16.5); LYMPHOCYTES % (AUTO) 34.5 % (20.5-51.1); MEAN CORPUSCULAR HEMOGLOBIN 24 pg (27-31); MEAN CORPUSCULAR HGB CONC 33 g/dL (33-37); MEAN CORPUSCULAR VOLUME 74.4 fL (80-94); MONOCYTES # (AUTO) 0.5 K/uL (0.8-1.0); MONOCYTES % (AUTO) 8.5 % (1.7-9.3); NEUTROPHILS # (AUTO) 2.9 K/uL (1.8-7.7); NEUTROPHILS % (AUTO) 53.7 % (42.2-75.2); PLATELET COUNT (AUTO) 174 K/uL (140-450); RED BLOOD CELL COUNT(AUTO) 5.12 MIL/uL (4.20-5.40); RED CELL DISTRIBUTION WIDTH 17.9 % (11.6-13.7); WHITE BLOOD COUNT (AUTO) 5.4 K/uL (4.8-10.8)
[2021-05-03 03:18] LABS: APPEARANCE,URINE HAZY (CLEAR)
[2021-05-03 03:22] LABS: RBC,URINE 0-5 /HPF (0-5)
[2021-05-03 03:22] LABS: ALBUMIN 3.9 g/dL (3.4-5.0); ANION GAP 13.1 (8-16); CARBON DIOXIDE 28.9 mmol/L (21-32); CREATININE 0.9 mg/dL (0.6-1.3); TOTAL BILIRUBIN 0.3 mg/dL (0.0-1.0)
[2021-05-03 03:23] LABS: WBC,URINE 20-60 /HPF (0-5); YEAST,URINE Few /HPF (None Seen)
[2021-05-03] MEDS ORDERED: ONDANSETRON 4 MG/2 ML VIAL IVP ONE (03:45)
[2021-05-03] MEDS ORDERED: NACL 0.9% 2,000 ML IV ONE ×2 (03:45)
[2021-05-03] MEDS ORDERED: MORPHINE SULFATE 4 MG/ML SYR IVP ONE ×2 (03:45→04:50)
[2021-05-03] MEDS ORDERED: cefTRIAXone 2,000 MG in DEXTROSE 5% 100 ML IV ONE (04:30)
[2021-05-03] MEDS ORDERED: cefTRIAXone 2,000 MG VIAL ONE (04:33)
[2021-05-03] MEDS ORDERED: NACL 0.9% 1,000 ML IV ONE (04:50)
[2021-05-03] MEDS ORDERED: MORPHINE SULFATE 4 MG/ML SYR ONE (04:54)
[2021-05-03] MEDS ORDERED: KETAMINE 10 MG/ML UD SYR **ER IVP ONE (07:05)
[2021-05-03] MEDS ORDERED: NITR100C7 PO (08:29)
[2021-05-03] MEDS ORDERED: ACET-8386 PO (08:29)
[2021-05-03 08:44] VITALS: BP 133/74
[2021-05-03 14:43] LABS: BARBITURATE, URINE NEGATIVE ng/ml (NEG <=200); BENZODIAZEPINE, URINE POSITIVE ng/mL (NEG <=200); CANNABINOID, URINE NEGATIVE ng/mL (NEG <=50); COCAINE, URINE NEGATIVE ng/mL (NEG <=300); OPIATE, URINE POSITIVE ng/mL (NEG <=2000); PHENCYCLIDINE SCREEN,URINE NEGATIVE ng/mL (NEG <=25)
[2021-05-03] MEDS ORDERED: NITROFURANTOIN 100 MG CAP PO SCH (17:00)
== END 2021-05-03 08:45 | disposition home or self-care (01) ==
LOC: MED 02:29
DX: N39.0 Urinary tract infection, site not specified (principal); E11.9 Type 2 diabetes mellitus without complications; Z87.442 Personal history of urinary calculi; Z88.6 Allergy status to analgesic agent; Z79.899 Other long term (current) drug therapy; Z90.49 Acquired absence of other specified parts of digestive tract
CPT/HCPCS: 36415; 74176; 76770; 80053; 80305; 81001; 82150; 83605; 83690; 85025; 87040; 87086; 96361; 96365; 96375; 96376; 99285; J0696; J2270; J2405; J7030

== ENCOUNTER 2021-05-17 08:19 | Inpatient (IN) | payer MEDICAID, SELFPAY ==
[~2021-05-17] VITALS: Ht 165.1 cm; Wt 108.9 kg
[~2021-05-17 08:19] MED LIST changes: +NITR100C7 PO
--- NOTE | 2021-05-17 08:19 | NUR ---
[facility]
[2021-05-17 08:23] VITALS: BP 119/74
[2021-05-17] MEDS ORDERED: cefTRIAXone 1,000 MG in DEXT 5% MINI-BAG PLUS 50 ML IV ONE (08:40)
[2021-05-17] MEDS ORDERED: MORPHINE SULFATE 4 MG/ML SYR IVP ONE ×2 (08:40→10:40)
[2021-05-17] MEDS ORDERED: NACL 0.9% 1,000 ML IV SCH (08:40)
--- NOTE | 2021-05-17 08:40 | NUR ---
41 YEAR OLD FEMALE COMPLAINS OF RIGHT FLANK PAIN X 1 HOUR. PT STATES ALSO ACCOMPANIED BY NAUSEA, VOMITTING. PT STATES SYMPTOMS SIMILAR TO PREVIOUS KIDNEY STONE. PT AOX4, BREATHING EVEN AND UNLABORED, SKIN WARM AND DRY. BED IN LOWEST POSITION, LOCKED, BED RAIL UPX1. PMH - DM2, KIDNEY STONES, NEUROPATHY ALLERGIES - IBUPROFEN, TORADOL
[2021-05-17 09:08] LABS: BILIRUBIN,URINE NEGATIVE (NEGATIVE); BLOOD, URINE 2+ (NEGATIVE); COLOR,URINE YELLOW (YELLOW); LEUKOCYTE ESTERASE ,URINE 1+ (NEGATIVE); NITRITE, URINE POSITIVE (NEGATIVE); UGLUCOSE NEGATIVE (NEGATIVE)
[2021-05-17] MEDS ORDERED: cefTRIAXone 1,000 MG VIAL ONE (09:26)
--- NOTE | 2021-05-17 09:55 | NUR ---
PATIENT TAKEN FOR CT SCAN VIA WHEELCHAIR
[2021-05-17 09:58] LABS: APPEARANCE,URINE HAZY (CLEAR)
[2021-05-17 09:59] LABS: WBC,URINE 20-60 /HPF (0-5)
--- NOTE | 2021-05-17 10:02 | NUR ---
PATIENT RETURNED BACK FROM CT VIA WHEELCHAIR TO BED 8.
[2021-05-17 10:27] LABS: BASOPHILS # (AUTO) 0.1 K/uL (0.00-0.22); BASOPHILS % (AUTO) 0.9 % (0.0-2.0); EOSINOPHILS # (AUTO) 0.1 K/uL (0-0.4); EOSINOPHILS % (AUTO) 1.3 % (0.0-4.0); HEMATOCRIT 38.4 % (36-48); HEMOGLOBIN 12.4 g/dL (12.0-16.0); LYMPHOCYTES # (AUTO) 1.2 K/uL (2.5-16.5); LYMPHOCYTES % (AUTO) 20.1 % (20.5-51.1); MEAN CORPUSCULAR HEMOGLOBIN 25 pg (27-31); MEAN CORPUSCULAR HGB CONC 32 g/dL (33-37); MEAN CORPUSCULAR VOLUME 76.1 fL (80-94); MONOCYTES # (AUTO) 0.4 K/uL (0.8-1.0); MONOCYTES % (AUTO) 6.5 % (1.7-9.3); NEUTROPHILS # (AUTO) 4.2 K/uL (1.8-7.7); NEUTROPHILS % (AUTO) 71.2 % (42.2-75.2); PLATELET COUNT (AUTO) 172 K/uL (140-450); RED BLOOD CELL COUNT(AUTO) 5.05 MIL/uL (4.20-5.40); RED CELL DISTRIBUTION WIDTH 18.1 % (11.6-13.7); WHITE BLOOD COUNT (AUTO) 5.9 K/uL (4.8-10.8)
[2021-05-17 10:43] LABS: CARBON DIOXIDE 25.9 mmol/L (21-32); CREATININE 0.9 mg/dL (0.6-1.3); POTASSIUM 3.9 mmol/L (3.5-5.1)
[2021-05-17 10:49] LABS: ALBUMIN 3.2 g/dL (3.4-5.0); TOTAL BILIRUBIN 0.4 mg/dL (0.0-1.0)
[2021-05-17] MEDS ORDERED: PIPERACILLIN/TAZOBACTAM 3.375 GM in DEXTROSE 5% 50 ML IV ONE (12:00)
--- NOTE | 2021-05-17 12:00 | NUR ---
PT ALERT AND AWAKE, BREATHING EVEN AND UNLABORED. NO DISTRESS NOTED. WILL CONTINUE TO MONITOR. PT STATES SHE IS DOING OKAY
[2021-05-17] MEDS ORDERED: PIPERACILLIN/TAZOBACTAM 3.375 GM VIAL IV ONE (12:08)
[2021-05-17] MEDS ORDERED: guaiFENesin DM 200/20 MG-10 ML 10 ML UDC PO PRN (12:15)
[2021-05-17] MEDS ORDERED: ONDANSETRON 4 MG/2 ML VIAL IM/IVP PRN (12:15)
[2021-05-17] MEDS ORDERED: ZOLPIDEM 5 MG TAB PO PRN (12:15)
[2021-05-17] MEDS ORDERED: ACETAMINOPHEN 325 MG TAB PO PRN (12:15)
[2021-05-17] MEDS ORDERED: POTASSIUM CHLORIDE 10 MEQ TABER PO PRN (12:15)
[2021-05-17] MEDS ORDERED: DOCUSATE SODIUM 100 MG GELCAP PO PRN (12:15)
[2021-05-17] MEDS ORDERED: DEXTROSE 50% 50 ML SYR IVP PRN (12:20)
[2021-05-17] MEDS ORDERED: TAMSULOSIN 0.4 MG CAP PO SCH (13:00)
--- NOTE | 2021-05-17 13:30 | NUR ---
PT ALERT AND AWAKE, BREATHING EVEN AND UNLABORED. NO DISTRESS NOTED. WILL CONTINUE TO MONITOR.
[2021-05-17 13:45] LABS: PROTHROMBIN TIME 9.3 secs (10.8-13.4)
[2021-05-17 13:54] LABS: CHOL/HDL RATIO 3.8 (1-4.5); FREE T4 (FREE THYROXINE) 0.71 ng/dL (0.76-1.46); MAGNESIUM 1.8 mg/dL (1.8-2.4); PHOSPHORUS 3.5 mg/dL (2.5-4.9); THYROID STIMULATING HORMONE 8.33 uIU/mL (0.34-3.74)
--- NOTE | 2021-05-17 14:40 | NUR ---
RECEIVED ADMISSION REPORT FROM ER NURSE. PT CONDITION STABLE, 41 y/o female with right flank pain since this morning. Pt reports dysuria. Pt describes sharp constant 8/10 pain in right flank without radiation. Pt without treatment for pain. PT HAS 22 G IV IN R WRIST PATENT, VERIFIED VIA IV FLUSH. NO CURRENT FLUIDS RUNNING. PT IS AA&OX4 AND IS AMBULATORY WITH STEADY GAIT. DENIES DIZZINESS. PT ON RA W/ NON LABORED BREATHING. SKIN IS INTACT. WILL CONTINUE TO MONITOR PT CONDITION.
--- NOTE | 2021-05-17 14:44 | NUR ---
Patient will be admitted to care of Dr Zambrano. Admited to [facility]. Will go to room 119B. Belongings list completed. Report to Ben ZEPEDA.
[2021-05-17] MEDS: MORPHINE SULFATE 2 MG/ML SYR IVP PRN (15:39)
--- NOTE | 2021-05-17 15:39 | NUR ---
ADMINISTERED MORPHINE PRN ORDERED FOR SEVERE PAIN 8/10 IN RIGHT FLANK. PT TOLERATED WELL. WILL REASSESS IN 1 HOUR, AND CONTINUE TO MONITOR THROUGH FREQUENT ROUNDS.
[2021-05-17] MEDS: NACL 0.9% 1,000 ML IV SCH ×2 (15:47→19:24)
[2021-05-17 16:00] VITALS: BP 138/88
--- NOTE | 2021-05-17 16:39 | NUR ---
REASSESSED FOR PAIN. CURRENTLY 2/10 PT IS SLEEPING STEADILY. WILL CONTINUE TO MONITOR THROUGH FREQUENT ROUNDS.
[2021-05-17] MEDS: BLOOD GLUCOSE MONITORING 1 DEV DEV FS SCH ×2 (16:57→21:14)
--- NOTE | 2021-05-17 17:14 | NUR ---
PATIENT REFUSED EKG PATIENT STATES "I DON'T NEED IT" Frances MEDEIROS RCP AND Diomedes DANIELLE RCP ATTENDING
--- NOTE | 2021-05-17 19:00 | NUR ---
ENDORSED REPORT TO CHIP TESTER NURSE SRINIVAS. PT CONDITION STABLE, AA&OX4, SKIN INTACT, ON RA, BREATHING UNLABORED WITH NORMAL RESPIRATIONS, IV PATENT RUNNING AT 140 ML/HR, NO ISSUES WITH BOWELS OR URINATING. PT LAYING DOWN ON PHONE. DENIES ANY PAIN. Addendum: 05/17/21 at 1923 by Angeline Ferro RN RN DISCUSSED POC WITH THE NIGHT NURSE. PT HANDOFF COMPLETED.
[2021-05-17 20:00] VITALS: BP 110/65
--- NOTE | 2021-05-17 20:00 | NUR ---
RECEIVED PATIENT IN BED ALERT AND COHERENT, SLEEPY, NO S/S OF DISTRESS
--- NOTE | 2021-05-17 21:00 | NUR ---
ALL DUE MEDS WERE GIVEN BS= 192, 2 UNITS REGULAR INSULIN WAS GIVEN TOLERATED WELL.
[2021-05-17] MEDS: INSULIN LISPRO SLIDING SCALE 100 UNITS/ML VIAL SUBQ PRN (21:14)
[2021-05-17] MEDS: INSULIN LANTUS 100 UNITS/ML 10 ML VIAL SUBQ SCH (21:15)
[2021-05-17 22:00] VITALS: BP 110/65
--- NOTE | 2021-05-18 | NUR ---
PATIENT REFUSED TO BE HOOKED UP IN HER IV HYDRATION SHE SAID HER PIV WAS BEING PULLED OUT WHEN SHE MOVED CONNECTED TO THE IV PUMP.
[2021-05-18] MEDS: NACL 0.9% 1,000 ML IV SCH ×3 (02:33→16:51)
[2021-05-18 04:00] VITALS: BP 128/70
[2021-05-18 05:58] LABS: BASOPHILS # (AUTO) 0.1 K/uL (0.00-0.22); BASOPHILS % (AUTO) 0.8 % (0.0-2.0); EOSINOPHILS # (AUTO) 0.1 K/uL (0-0.4); EOSINOPHILS % (AUTO) 1.6 % (0.0-4.0); HEMATOCRIT 34.8 % (36-48); HEMOGLOBIN 11.3 g/dL (12.0-16.0); LYMPHOCYTES # (AUTO) 1.5 K/uL (2.5-16.5); LYMPHOCYTES % (AUTO) 24.4 % (20.5-51.1); MEAN CORPUSCULAR HEMOGLOBIN 25 pg (27-31); MEAN CORPUSCULAR HGB CONC 32 g/dL (33-37); MEAN CORPUSCULAR VOLUME 75.8 fL (80-94); MONOCYTES # (AUTO) 0.5 K/uL (0.8-1.0); MONOCYTES % (AUTO) 8.6 % (1.7-9.3); NEUTROPHILS % (AUTO) 64.6 % (42.2-75.2); PLATELET COUNT (AUTO) 159 K/uL (140-450); RED BLOOD CELL COUNT(AUTO) 4.59 MIL/uL (4.20-5.40); RED CELL DISTRIBUTION WIDTH 17.3 % (11.6-13.7); WHITE BLOOD COUNT (AUTO) 6.2 K/uL (4.8-10.8)
[2021-05-18] MEDS: BLOOD GLUCOSE MONITORING 1 DEV DEV FS SCH ×4 (06:00→21:00)
--- NOTE | 2021-05-18 06:02 | NUR ---
TRY TO CONVINCE THE PATIENT TO RECEIVE HER iv HYDRATION BUT STILL REFUSING THE HYDRATION
[2021-05-18 06:06] LABS: ANION GAP 9.2 (8-16); CARBON DIOXIDE 27.9 mmol/L (21-32); CREATININE 0.8 mg/dL (0.6-1.3); POTASSIUM 4.1 mmol/L (3.5-5.1)
--- NOTE | 2021-05-18 06:30 | NUR ---
patient refused to have 2 side rails up for fall prevention.
--- NOTE | 2021-05-18 06:31 | NUR ---
GN=032 MG/DL, COVERED BY 4 UNITS REGULAR INSULIN SUBCUTENEOUSLY
--- NOTE | 2021-05-18 06:33 | NUR ---
REPORTS WERE GIVEN ,TRANSFER OF CARE ENDORSED.
--- NOTE | 2021-05-18 07:05 | NUR ---
PT REFUSED TO WEAR HOSPITAL GOWN AND ARM BAND. PT ALSO REFUSED TO RAISE UP 2 SIDERAILS FOR SAFETY. RISKS AND CONSEQUENCES EXPLAINED TO PT AND VERBALIZED UNDERSTANDING. WILL CONTINUE TO MONITOR.
--- NOTE | 2021-05-18 07:30 | NUR ---
RECEIVED PT AAOX4. NO SOB NOTED. NO C/O PAIN AT THIS TIME. IV TO RT WRIST PATENT AND INTACT. CHEST CLEAR, ABDOMEN SOFT, BOWEL SOUNDS PRESENT. NO EDEMA NOTED. INSTRUCTED PT TO CALL FOR ASSISTANCE, CALL LIGHT WITHIN REACH, VERBALIZED UNDERSTANDING.
[2021-05-18 08:00] VITALS: BP_SYST 135; BP_SYST 139; BP_DIAS 74; BP_DIAS 81
[2021-05-18] MEDS: TAMSULOSIN 0.4 MG CAP PO SCH (08:50)
[2021-05-18] MEDS: PANTOPRAZOLE 40 MG TABEC PO SCH (08:50)
[2021-05-18] MEDS: MORPHINE SULFATE 2 MG/ML SYR IVP PRN (08:51)
--- NOTE | 2021-05-18 09:00 | NUR ---
PATIENT HAS BEEN SCREENED AND CATEGORIZED LOW NUTRITION RISK. PATIENT WILL BE SEEN WITHIN 7 DAYS OF ADMISSION. 05/24/[address]
[2021-05-18 09:06] LABS: T4 (THYROXINE) 5.8 ug/dL (4.5-12.0)
[2021-05-18] MEDS ORDERED: PREGABALIN 25 MG CAP PO SCH (11:15)
[2021-05-18] MEDS: LEVOTHYROXINE 0.05 MG TAB PO SCH (11:26)
[2021-05-18] MEDS: INSULIN LISPRO SLIDING SCALE 100 UNITS/ML VIAL SUBQ PRN ×2 (12:35→21:04)
[2021-05-18] MEDS: HYDROcodone/APAP 7.5/325 MG 1 TAB PO PRN ×2 (12:36→22:43)
[2021-05-18 16:00] VITALS: BP 139/81
--- NOTE | 2021-05-18 16:22 | NUR ---
DC PLANNING: PATIENT ADMITTED FOR RECURRENT PYELONEPHRITIS. THE PATIENT LIVES IN THE [facility] FOR HOME SKILLED NURSING, HAS BEEN THERE FOR 3 MONTHS. RECEIVES GFR AND FOOD STAMPS, FOLLOWS UP WITH HER PCP DR. CHAUDHRY REGULARLY. HAS A UROLOGY APPT. JUN 18, AND HAS A REFERRAL TO [facility] FOR HER FOOT PAIN/NEUROPATHY. HAS DME OF A FWW, STATES HER MOTHER IS HER SUPPORT SYSTEM. WILL NEED A TAXI VOUCHER TO GET BACK TO THE SKILLED NURSING. CM WILL CONTINUE TO FOLLOW FOR NEEDS.
[2021-05-18] MEDS: MORPHINE SULFATE 4 MG/ML SYR IVP PRN (18:43)
--- NOTE | 2021-05-18 19:20 | NUR ---
RECEIVED PATIENT FROM AM NURSE FOR CONTINUITY OF CARE. PATIENT A/A/O X4. RESPIRATORY EVEN AND UNLABORED, ON ROOM AIR. NO SIGN OF DISTRESS NOTED. SKIN WARM, DRY, NON DIAPHORETIC. IV ON RIGHT WRIST 22G, INTACT AND PATENT, IS INFUSING FLUID ORDER. DENIES ANY PAIN OR DISCOMFORT. ABLE TO MAKE NEEDS KNOW. EDUCATE PATIENT THE SAFETY PURPOSE OF SIDE RAILS, PATIENT STILL REFUSED TO PLACE THE SIDE RAILS UP. PLAN OF CARE DISCUSSED, PATIENT VERBALIZED UNDERSTANDING. CALL LIGHT WITHIN REACH. WILL CONTINUE TO MONITOR.
--- NOTE | 2021-05-18 19:30 | NUR ---
PT RESTING. NO COMPLAINTS MADE. ENDORSED TO NEXT SHIFT NURSE FOR CONTINUITY OF CARE.
[2021-05-18 20:00] VITALS: BP 135/75
--- NOTE | 2021-05-18 21:00 | NUR ---
BLOOD SUGAR CHECK 201, 4UNIT OF HUMALOG GIVEN TO COVER. SCHEDULE MEDICATIONS GIVEN WITH EDUCATION. PATIENT VERBALIZED UNDERSTANDING. PATIENT TOLERATED WELL. CALL LIGHT WITHIN REACH. WILL CONTINUE TO MONITOR.
[2021-05-18] MEDS: INSULIN LANTUS 100 UNITS/ML 10 ML VIAL SUBQ SCH (21:01)
[2021-05-18] MEDS: PREGABALIN 25 MG CAP PO SCH (21:05)
--- NOTE | 2021-05-18 22:43 | NUR ---
NORCO PRN MEDICATION GIVEN WITH EDUCATION FOR PAIN. BP 144/86, HR 95. PATIENT TOLERATED WELL. CALL LIGHT WITHIN REACH. WILL CONTINUE TO MONITOR.
--- NOTE | 2021-05-18 23:43 | NUR ---
PATIENT IS AWAKE, REPORT PAIN TOLERABLE 3/10, NO SIGN OF DISTRESS NOTED. CALL LIGHT WITHIN REACH. WILL CONTINUE TO MONITOR.
[2021-05-19] MEDS: NACL 0.9% 1,000 ML IV SCH ×2 (00:14→07:09)
--- NOTE | 2021-05-19 02:00 | NUR ---
ROUND CHECK. PATIENT IS SLEEPING, CHEST RISE AND FALL. AROUSABLE TO VOICE. NO SIGN OF DISTRESS NOTED. CALL LIGHT WITHIN REACH. WILL CONTINUE TO MONITOR.
[2021-05-19] MEDS: MORPHINE SULFATE 4 MG/ML SYR IVP PRN ×2 (03:06→10:12)
--- NOTE | 2021-05-19 03:06 | NUR ---
pt complaining of pain on her right side 05/02. prn morphine given per order.
[2021-05-19 04:00] VITALS: BP 122/71
--- NOTE | 2021-05-19 04:00 | NUR ---
PATIENT IS SLEEPING, CHEST RISE AND FALL, NO SIGN OF DISTRESS NOTED. CALL LIGHT WITHIN REACH. WILL CONTINUE TO MONITOR.
[2021-05-19 05:33] LABS: BASOPHILS % (AUTO) 0.6 % (0.0-2.0); EOSINOPHILS # (AUTO) 0.1 K/uL (0-0.4); HEMATOCRIT 34.2 % (36-48); HEMOGLOBIN 11.3 g/dL (12.0-16.0); LYMPHOCYTES # (AUTO) 1.7 K/uL (2.5-16.5); MEAN CORPUSCULAR HEMOGLOBIN 25 pg (27-31); MEAN CORPUSCULAR HGB CONC 33 g/dL (33-37); MEAN CORPUSCULAR VOLUME 74.8 fL (80-94); MONOCYTES # (AUTO) 0.5 K/uL (0.8-1.0); MONOCYTES % (AUTO) 8.8 % (1.7-9.3); NEUTROPHILS # (AUTO) 3.4 K/uL (1.8-7.7); NEUTROPHILS % (AUTO) 59.6 % (42.2-75.2); PLATELET COUNT (AUTO) 163 K/uL (140-450); RED BLOOD CELL COUNT(AUTO) 4.57 MIL/uL (4.20-5.40); RED CELL DISTRIBUTION WIDTH 17.7 % (11.6-13.7); WHITE BLOOD COUNT (AUTO) 5.8 K/uL (4.8-10.8)
[2021-05-19 05:43] LABS: ANION GAP 10.6 (8-16); CARBON DIOXIDE 28.2 mmol/L (21-32); CREATININE 0.8 mg/dL (0.6-1.3); POTASSIUM 3.8 mmol/L (3.5-5.1)
[2021-05-19] MEDS: LEVOTHYROXINE 0.05 MG TAB PO SCH (06:31)
[2021-05-19] MEDS: BLOOD GLUCOSE MONITORING 1 DEV DEV FS SCH (06:31)
--- NOTE | 2021-05-19 06:31 | NUR ---
BLOOD SUGAR CHECK 140, NO INSULIN NEEDS TO COVER. SCHEDULE MEDICATION GIVEN WITH EDUCATION, PATIENT VERBALIZED UNDERSTANDING. NO SIGN OF DISTRESS NOTED. CALL LIGHT WITHIN REACH. WILL CONTINUE TO MONITOR.
--- NOTE | 2021-05-19 07:10 | NUR ---
ENDORSED PATIENT TO AM NURSE FOR CONTINUITY OF CARE. PATIENT IS STABLE.
--- NOTE | 2021-05-19 07:30 | NUR ---
RECEIVED PT AAOX4. NO SOB NOTED. NO C/O PAIN AT THIS TIME. IV TO RT WRIST PATENT AND INTACT. CHEST CLEAR, ABDOMEN SOFT, BOWEL SOUNDS PRESENT. NO EDEMA NOTED. INSTRUCTED PT TO CALL FOR ASSISTANCE, CALL LIGHT WITHIN REACH, VERBALIZED UNDERSTANDING. PT STILL REFUSING TO WEAR HOSPITAL GOWN AND ARM BAND. PT ALSO REFUSED TO RAISE UP 2 SIDE RAILS FOR SAFETY. RISKS AND CONSEQUENCES EXPLAINED TO PT AND VERBALIZED UNDERSTANDING. WILL CONTINUE TO MONITOR.
[2021-05-19 08:00] VITALS: BP 114/71
[2021-05-19] MEDS: PREGABALIN 25 MG CAP PO SCH (09:09)
[2021-05-19] MEDS: TAMSULOSIN 0.4 MG CAP PO SCH (09:09)
[2021-05-19] MEDS: PANTOPRAZOLE 40 MG TABEC PO SCH (09:09)
[2021-05-19] MEDS ORDERED: AZIT250T11 PO (10:18)
[2021-05-19] MEDS ORDERED: CEPH250C16 PO (10:18)
[2021-05-19] MEDS ORDERED: ACET-9527 PO (11:17)
[2021-05-19] MEDS ORDERED: CHLORHEXADINE GLUC 2% CLOTH TP SCH (12:35)
[2021-05-19] MEDS ORDERED: MUPIROCIN CA NASAL 2% 1GM TUBE NS SCH (12:45)
--- NOTE | 2021-05-19 13:00 | NUR ---
DISCHARGE INSTRUCTIONS GIVEN TO PT WHICH VERBALIZED FULL UNDERSTANDING OF THE INSTRUCTIONS GIVEN AND THE NEED TO FOLLOW UP WITH OWN PCP IN 3-5 DAYS. PT MADE AWARE THAT ALL HER SCRIPTS WERE SENT TO HER PREFERRED PHARMACY AT [facility]. ARM BANDS AND IV REMOVED, CANNULA TIP INTACT.
--- NOTE | 2021-05-19 13:25 | NUR ---
ESCORTED PT OUT TO THE FRONT LOBBY IN STABLE CONDITION, AMBULATORY WITH STEADY GAIT. PT IS D/C HOME TO RESIDENTIAL WITH TAXI VOUCHER. PINK SLIP GIVEN TO CHEIKH HOUSE SUP.
== END 2021-05-19 13:33 | disposition home or self-care (01) | DRG 720 ==
LOC: MED 08:19 → MTU 13:44
PROVIDERS: ADMIT Family Medicine; ATTEND Family Medicine
DX: A41.9 Sepsis, unspecified organism (principal); E11.00 Type 2 diabetes mellitus with hyperosmolarity without nonketotic hyperglycemic-hyperosmolar coma (NKHHC); K76.0 Fatty (change of) liver, not elsewhere classified; E11.40 Type 2 diabetes mellitus with diabetic neuropathy, unspecified; E46 Unspecified protein-calorie malnutrition; E66.01 Morbid (severe) obesity due to excess calories; N12 Tubulo-interstitial nephritis, not specified as acute or chronic; E87.1 Hypo-osmolality and hyponatremia; E86.0 Dehydration; I25.10 Atherosclerotic heart disease of native coronary artery without angina pectoris; Z20.822 Contact with and (suspected) exposure to COVID-19; E03.9 Hypothyroidism, unspecified; N20.0 Calculus of kidney; Z87.442 Personal history of urinary calculi; Z88.8 Allergy status to other drugs, medicaments and biological substances; Z79.899 Other long term (current) drug therapy; Z68.39 Body mass index [BMI] 39.0-39.9, adult
CPT/HCPCS: 36415; 71045; 76770; 80048; 80053; 81001; 82150; 82948; 83036; 83690; 83735; 83880; 84100; 84436; 84439; 84443; 84479; 84484; 85025; 85610; 85730; 87081; 87086; 96365; 96367; 99285; J0696; J1815; J2270; J2543; J7060

== ENCOUNTER 2021-05-26 19:45 | Inpatient (IN) | payer MEDICAID, SELFPAY ==
[~2021-05-26] VITALS: Ht 167.6 cm; Wt 99.8 kg
[2021-05-26 19:45] VITALS: BP 120/76
[~2021-05-26 19:45] MED LIST changes: -ACET-8386 PO; +ACET-9527 PO; +AZIT250T11 PO; +CEPH250C16 PO; -NITR100C7 PO; -SULF-59 PO
--- NOTE | 2021-05-26 20:00 | NUR ---
BIBA TAKEN TO BED #12
--- NOTE | 2021-05-26 20:30 | NUR ---
LAB AT BEDSIDE.
[2021-05-26 20:32] LABS: BASOPHILS # (AUTO) 0.1 K/uL (0.00-0.22); EOSINOPHILS # (AUTO) 0.1 K/uL (0-0.4); HEMATOCRIT 35.8 % (36-48); HEMOGLOBIN 11.7 g/dL (12.0-16.0); LYMPHOCYTES # (AUTO) 1.6 K/uL (2.5-16.5); LYMPHOCYTES % (AUTO) 27.3 % (20.5-51.1); MEAN CORPUSCULAR HEMOGLOBIN 25 pg (27-31); MEAN CORPUSCULAR HGB CONC 33 g/dL (33-37); MEAN CORPUSCULAR VOLUME 76.1 fL (80-94); MONOCYTES # (AUTO) 0.4 K/uL (0.8-1.0); MONOCYTES % (AUTO) 7.3 % (1.7-9.3); NEUTROPHILS # (AUTO) 3.7 K/uL (1.8-7.7); NEUTROPHILS % (AUTO) 62.4 % (42.2-75.2); PLATELET COUNT (AUTO) 178 K/uL (140-450); RED CELL DISTRIBUTION WIDTH 17.5 % (11.6-13.7)
[2021-05-26 20:48] LABS: ALBUMIN 3.3 g/dL (3.4-5.0); ANION GAP 10.8 (8-16); CARBON DIOXIDE 30.2 mmol/L (21-32); CREATININE 0.9 mg/dL (0.6-1.3); TOTAL BILIRUBIN 0.2 mg/dL (0.0-1.0)
[2021-05-26 20:55] LABS: APPEARANCE,URINE SL CLOUDY (CLEAR); BILIRUBIN,URINE NEGATIVE (NEGATIVE); BLOOD, URINE NEGATIVE (NEGATIVE); COLOR,URINE YELLOW (YELLOW); LEUKOCYTE ESTERASE ,URINE 1+ (NEGATIVE); NITRITE, URINE POSITIVE (NEGATIVE); UGLUCOSE NEGATIVE (NEGATIVE)
[2021-05-26] MEDS ORDERED: ONDANSETRON 4 MG/2 ML VIAL IVP ONE ×2 (21:15→23:15)
[2021-05-26] MEDS ORDERED: MORPHINE SULFATE 4 MG/ML SYR IVP ONE ×2 (21:15→23:15)
[2021-05-26] MEDS ORDERED: NACL 0.9% 1,000 ML IV ONE ×2 (21:15)
[2021-05-26] MEDS ORDERED: MEROPENEM 1,000 MG in NACL 0.9% 100 ML IV ONE (21:20)
[2021-05-26 21:21] LABS: RBC,URINE 0-5 /HPF (0-5); WBC,URINE 20-60 /HPF (0-5)
[2021-05-26] MEDS ORDERED: MEROPENEM 1,000 MG VIAL IV ONE (21:24)
--- NOTE | 2021-05-26 21:48 | NUR ---
IV STARTED MEDICATED FOR 9/10 FLANK PAIN. IV FLUIDS BEGAN AND ABX BLOOD CX DRAWN GROUP SUPERVISOR YARD
[2021-05-26] MEDS ORDERED: LYR75 PO (22:36)
[2021-05-26] MEDS ORDERED: GABA300C PO (22:36)
[2021-05-26] MEDS ORDERED: INSU100I7 SQ (22:36)
[2021-05-26] MEDS ORDERED: SLIDE SUBQ (22:36)
[2021-05-26] MEDS ORDERED: BACL10TA4 PO (22:36)
--- NOTE | 2021-05-26 22:56 | NUR ---
GILA SWAB COLLECTED AND TAKEN TO LAB.
--- NOTE | 2021-05-27 03:06 | NUR ---
PT ASLEEP WITH RESP EVEN UNLABORED PT REFUSES TO WEAR VICE PRESIDENT INDUSTRIAL RELATIONS STATES IT IRRITATES HER SKIN. PT AWAITS TELE BED NONE AVAIL AT THIS TIME. NAD IV SITE PATENT
--- NOTE | 2021-05-27 06:22 | NUR ---
vitals rechecked pt removes pox and leads refuses to keep them on. reports pain 10/[address] colon obtain prn pain meds and a diet order. awaits a tele bed avail
--- NOTE | 2021-05-27 07:10 | NUR ---
RECEIVED REPORT FROM JANA ZEPEDA, ASSUMED CARE AT THIS TIME.
[2021-05-27] MEDS: MORPHINE SULFATE 2 MG/ML SYR IVP PRN ×4 (08:01→21:07)
[2021-05-27] MEDS ORDERED: ACETAMINOPHEN 325 MG TAB PO PRN (08:55)
[2021-05-27] MEDS ORDERED: DOCUSATE SODIUM 100 MG GELCAP PO PRN (08:55)
[2021-05-27] MEDS ORDERED: ONDANSETRON 4 MG/2 ML VIAL IVP PRN (08:55)
[2021-05-27] MEDS ORDERED: ZOLPIDEM 5 MG TAB PO PRN (08:55)
[2021-05-27] MEDS ORDERED: HYDROcodone/APAP 5/325 MG 1 TAB TAB PO PRN (08:55)
[2021-05-27] MEDS ORDERED: LORazepam 2 MG/ML VIAL IM/IVP PRN (08:55)
[2021-05-27] MEDS: NACL 0.9% 1,000 ML IV SCH ×2 (08:55→18:55)
[2021-05-27] MEDS ORDERED: cefTRIAXone 1,000 MG VIAL ONE (09:00)
--- NOTE | 2021-05-27 09:36 | NUR ---
ATTEMPTING TO RUN PATIENTS SCHEDULED ROCEPHIN, PATIENT NOT BEING COOPERATIVE AND NOT ALLOWING MEDICATION TO RUN.
[2021-05-27 09:41] LABS: BASOPHILS # (AUTO) 0.1 K/uL (0.00-0.22); BASOPHILS % (AUTO) 0.8 % (0.0-2.0); EOSINOPHILS # (AUTO) 0.1 K/uL (0-0.4); EOSINOPHILS % (AUTO) 1.8 % (0.0-4.0); HEMATOCRIT 34.9 % (36-48); HEMOGLOBIN 11.3 g/dL (12.0-16.0); LYMPHOCYTES # (AUTO) 1.5 K/uL (2.5-16.5); LYMPHOCYTES % (AUTO) 23.9 % (20.5-51.1); MEAN CORPUSCULAR HEMOGLOBIN 25 pg (27-31); MEAN CORPUSCULAR HGB CONC 32 g/dL (33-37); MEAN CORPUSCULAR VOLUME 75.9 fL (80-94); MONOCYTES # (AUTO) 0.4 K/uL (0.8-1.0); MONOCYTES % (AUTO) 6.9 % (1.7-9.3); NEUTROPHILS # (AUTO) 4.2 K/uL (1.8-7.7); NEUTROPHILS % (AUTO) 66.6 % (42.2-75.2); PLATELET COUNT (AUTO) 167 K/uL (140-450); RED CELL DISTRIBUTION WIDTH 17.3 % (11.6-13.7); WHITE BLOOD COUNT (AUTO) 6.3 K/uL (4.8-10.8)
--- NOTE | 2021-05-27 09:42 | NUR ---
Patient disconnected medication herself from her IV, refusing to allow medication to run. Stating "I want to talk to your charge nurse and I dont want you to come back in my room." Admit doctor made aware.
[2021-05-27 09:55] LABS: PROTHROMBIN TIME 9.5 secs (10.8-13.4)
--- NOTE | 2021-05-27 10:15 | NUR ---
Patient refused ultrasound.
[2021-05-27 11:07] LABS: ALBUMIN 3.3 g/dL (3.4-5.0); ANION GAP 8.3 (8-16); CARBON DIOXIDE 29.9 mmol/L (21-32); CREATININE 0.7 mg/dL (0.6-1.3); POTASSIUM 4.2 mmol/L (3.5-5.1); TOTAL BILIRUBIN 0.4 mg/dL (0.0-1.0)
[2021-05-27 11:16] LABS: CHOL/HDL RATIO 3.7 (1-4.5); FREE T4 (FREE THYROXINE) 0.74 ng/dL (0.76-1.46); MAGNESIUM 1.8 mg/dL (1.8-2.4); PHOSPHORUS 3.2 mg/dL (2.5-4.9); THYROID STIMULATING HORMONE 5.07 uIU/mL (0.34-3.74)
--- NOTE | 2021-05-27 12:02 | NUR ---
Vitals rechecked and charted, patient refuses to keep monitor leads on, continues to take them off. States "I do not want to wear them."
--- NOTE | 2021-05-27 12:24 | NUR ---
Patient refused xray.
--- NOTE | 2021-05-27 13:42 | NUR ---
Patient will be admitted to care of Dr. Katz. Admited to Med/Surg. Will go to room 120B. Belongings list completed. Report to Jessica.
--- NOTE | 2021-05-27 13:45 | NUR ---
RECEIVED REPORT FROM ER NURSE FOR CONTINUITY OF CARE OF PT.
[2021-05-27 14:00] VITALS: BP 144/88
--- NOTE | 2021-05-27 14:00 | NUR ---
PT ARRIVED VIA WHEELCHAIR FROM ED. PT IS ON RA WITH UNLABORED BREATHING. IV WRIST 22 GAUGE SALINE LOCK INTACT. SKIN IS DRY AND WARM. PT VITALS ARE STABLE. PT DENIED THE MRSA SWAB AND HOSPITAL GOWN. SAFETY MEASURES IN PLACE. CALL LIGHT WITHIN REACH. WILL CONTINUE TO MONITOR.
--- NOTE | 2021-05-27 14:05 | NUR ---
PT REFUSED ANSWERING HISTORY QUESTIONS FOR ASSESSMENT SAID EVERYTHING WAS ALREADY ON CHART AND FOR ME TO LOOK IT UP.
--- NOTE | 2021-05-27 15:48 | NUR ---
PATIENT HAS BEEN SCREENED AND CATEGORIZED LOW NUTRITION RISK. PATIENT WILL BE SEEN WITHIN 7 DAYS OF ADMISSION. 06/02/[address]
--- NOTE | 2021-05-27 17:00 | NUR ---
PT IS LAYING IN BED ON HER PHONE WITH HEADPHONES ON. PT IS ON RA WITH UNLABORED BREATHING. CALL LIGHT WITHIN REACH. SAFETY MEASURES ARE IN PLACE AND WILL CONTINUE TO MONITOR.
--- NOTE | 2021-05-27 18:44 | NUR ---
PT REFUSED IV FLUIDS AND REFUSED ANTIBIOTICS.
--- NOTE | 2021-05-27 19:25 | NUR ---
GAVE BEDSIDE REPORT TO NIGHTSHIFT NURSE FOR CONTINUE OF CARE. PT IS STABLE.
--- NOTE | 2021-05-27 19:30 | NUR ---
RECEIVED PT IN STABLE CONDITION FROM AM NURSE. MED SURG PT. AWAKE,ALERT AND ORIENTED X4. HAS HX: ESBL IN THE URINE. CONTACT ISOLATION. NO /CO PAIN AT THIS TIME. WITH IVF INFUSING WELL ON THE RT WRIST G#22. CAN AMBULATE. PLAN OF CARE DISCUSSED AND VERBALIZED UNDERSTANDING. WILL CONTINUE TO MONITOR.
[2021-05-27 20:00] VITALS: BP 129/71
[2021-05-27 20:29] LABS: BARBITURATE, URINE NEGATIVE ng/ml (NEG <=200); BENZODIAZEPINE, URINE POSITIVE ng/mL (NEG <=200); CANNABINOID, URINE NEGATIVE ng/mL (NEG <=50); COCAINE, URINE NEGATIVE ng/mL (NEG <=300); OPIATE, URINE POSITIVE ng/mL (NEG <=2000); PHENCYCLIDINE SCREEN,URINE NEGATIVE ng/mL (NEG <=25)
--- NOTE | 2021-05-27 21:07 | NUR ---
C/O PAIN . MEDICATED ORDERED. WILL CONTINUE TO MONITOR.
--- NOTE | 2021-05-27 23:00 | NUR ---
PT ASLEEP. NO S/S OF ANY DISCOMFORT NOR PAIN NOTED.
[2021-05-28] MEDS: MORPHINE SULFATE 2 MG/ML SYR IVP PRN ×4 (02:16→20:58)
--- NOTE | 2021-05-28 02:30 | NUR ---
KATELYN BRISCOE CHARGE MEDICATE PT FOR PAIN @1425. WILL CONTINUE TO MONITOR
[2021-05-28 04:00] VITALS: BP 125/79
--- NOTE | 2021-05-28 05:00 | NUR ---
MERREM IVPB STARTED . WILL MONITOR.
[2021-05-28] MEDS ORDERED: MEROPENEM 1,000 MG VIAL IV ONE (05:05)
[2021-05-28] MEDS: NACL 0.9% 1,000 ML IV SCH ×2 (05:17→12:24)
[2021-05-28] MEDS: MEROPENEM 1,000 MG in NACL 0.9% 100 ML IV SCH ×3 (05:24→20:58)
[2021-05-28 05:41] LABS: BASOPHILS % (AUTO) 0.6 % (0.0-2.0); EOSINOPHILS # (AUTO) 0.1 K/uL (0-0.4); EOSINOPHILS % (AUTO) 1.6 % (0.0-4.0); HEMATOCRIT 34.6 % (36-48); HEMOGLOBIN 11.5 g/dL (12.0-16.0); LYMPHOCYTES # (AUTO) 2.1 K/uL (2.5-16.5); LYMPHOCYTES % (AUTO) 30.2 % (20.5-51.1); MEAN CORPUSCULAR HEMOGLOBIN 25 pg (27-31); MEAN CORPUSCULAR HGB CONC 33 g/dL (33-37); MEAN CORPUSCULAR VOLUME 74.8 fL (80-94); MONOCYTES # (AUTO) 0.6 K/uL (0.8-1.0); NEUTROPHILS # (AUTO) 4.2 K/uL (1.8-7.7); NEUTROPHILS % (AUTO) 59.6 % (42.2-75.2); PLATELET COUNT (AUTO) 160 K/uL (140-450); RED BLOOD CELL COUNT(AUTO) 4.63 MIL/uL (4.20-5.40); WHITE BLOOD COUNT (AUTO) 7.1 K/uL (4.8-10.8)
[2021-05-28 06:27] LABS: ANION GAP 13.1 (8-16); CARBON DIOXIDE 26.7 mmol/L (21-32); CREATININE 0.8 mg/dL (0.6-1.3); MAGNESIUM 1.7 mg/dL (1.8-2.4); PHOSPHORUS 3.2 mg/dL (2.5-4.9); POTASSIUM 3.8 mmol/L (3.5-5.1)
--- NOTE | 2021-05-28 07:20 | NUR ---
ENDORSED PT IN STABLE CONDITION TO AM NURSE.
--- NOTE | 2021-05-28 07:21 | NUR ---
RECEIVED REPORT FROM CRYPTOGRAPHIC TECHNICIAN NURSE. PATIENT LYING DOWN IN BED SLEEPING, AROUSABLE BY VOICE. PAIN WITHIN TOLERABLE. IV SITE INTACT, PATENT, AND INFUSING IVF PER MD ORDERS. ON ROOM AIR. REVIEWED PLAN OF CARE WITH PATIENT. PATIENT VERBALIZED UNDERSTANDING. SAFETY MEASURES IN PLACE, CALL LIGHT WITHIN REACH. WILL CONTINUE TO MONITOR.
[2021-05-28 08:00] VITALS: BP 100/66
--- NOTE | 2021-05-28 08:37 | NUR ---
PATIENT COMPLAINS OF PAIN. MORPHINE GIVEN AT THIS TIME. WILL CONTINUE TO MONITOR.
[2021-05-28] MEDS ORDERED: DEXTROSE 50% 50 ML SYR IVP PRN (08:45)
[2021-05-28] MEDS: PREGABALIN 25 MG CAP PO SCH ×2 (09:18→20:58)
[2021-05-28] MEDS: GABAPENTIN 300 MG CAP PO SCH ×3 (09:18→17:12)
[2021-05-28] MEDS: BLOOD GLUCOSE MONITORING 1 DEV DEV FS SCH ×3 (12:17→20:57)
[2021-05-28] MEDS: INSULIN LISPRO SLIDING SCALE 100 UNITS/ML VIAL SUBQ PRN ×3 (12:17→21:01)
--- NOTE | 2021-05-28 12:25 | NUR ---
SCHEDULED MEDICATIONS DUE GIVEN. WILL CONTINUE TO MONITOR.
[2021-05-28] MEDS ORDERED: MAGNESIUM OXIDE 400 MG TAB PO SCH (14:30)
[2021-05-28 16:00] VITALS: BP 126/78
--- NOTE | 2021-05-28 17:15 | NUR ---
SCHEDULED MEDICATIONS DUE GIVEN. WILL CONTINUE TO MONITOR.
--- NOTE | 2021-05-28 19:25 | NUR ---
GAVE REPORT TO WALLPAPER INSPECTOR AND SHIPPER NURSE FOR CONTINUITY OF CARE. PATIENT IN STABLE CONDITION.
--- NOTE | 2021-05-28 19:26 | NUR ---
RECEIVED REPORT FROM DAY SHIFT NURSE. PT IN BED RESTING. PT AAOX4, ABLE TO MAKE NEEDS KNOWN. RESPIRATIONS EVEN AND UNLABORED TO ROOM AIR. ABDOMEN SOFT AND NON-TENDER. SKIN IS WARM, DRY, AND INTACT. PT VERBALIZED TOLERABLE PAIN AT THIS TIME. NO REQUESTS MADE. PT KEPT COMFORTABLE. CALL LIGHT WITHIN REACH. WILL CONTINUE TO MONITOR.
--- NOTE | 2021-05-28 20:58 | NUR ---
VS STABLE. PT COMPLAINING OF PAIN 06/02. PRN MORPHINE GIVEN. SCHEDULED MEDICATION GIVEN WELL. WILL CONTINUE TO MONITOR.
--- NOTE | 2021-05-29 00:16 | NUR ---
ROUNDS MADE. PT ASLEEP. VISIBLE CHEST RISE AND FALL NOTED. NO S/SX OF PAIN OR DISCOMFORT NOTED. PT KEPT COMFORTABLE. WILL CONTINUE TO MONITOR.
[2021-05-29] MEDS: NACL 0.9% 1,000 ML IV SCH ×3 (01:52→20:55)
[2021-05-29] MEDS: MORPHINE SULFATE 2 MG/ML SYR IVP PRN ×4 (02:24→21:06)
--- NOTE | 2021-05-29 02:25 | NUR ---
PT COMPLAINING OF PAIN 05/02. PRN MORPHINE GIVEN ORDERED.
[2021-05-29 04:00] VITALS: BP 103/63
--- NOTE | 2021-05-29 04:31 | NUR ---
VS STABLE. PT DENIES ANY PAIN OR DISCOMFORT. NO REQUESTS MADE AT THIS TIME. WILL CONTINUE TO MONITOR.
[2021-05-29] MEDS: MEROPENEM 1,000 MG in NACL 0.9% 100 ML IV SCH ×3 (05:45→21:00)
[2021-05-29 06:00] LABS: BASOPHILS # (AUTO) 0.1 K/uL (0.00-0.22); BASOPHILS % (AUTO) 0.6 % (0.0-2.0); EOSINOPHILS # (AUTO) 0.1 K/uL (0-0.4); EOSINOPHILS % (AUTO) 1.5 % (0.0-4.0); HEMATOCRIT 38.5 % (36-48); HEMOGLOBIN 12.7 g/dL (12.0-16.0); LYMPHOCYTES # (AUTO) 1.9 K/uL (2.5-16.5); LYMPHOCYTES % (AUTO) 24.7 % (20.5-51.1); MEAN CORPUSCULAR HEMOGLOBIN 25 pg (27-31); MEAN CORPUSCULAR HGB CONC 33 g/dL (33-37); MEAN CORPUSCULAR VOLUME 75.5 fL (80-94); MONOCYTES # (AUTO) 0.7 K/uL (0.8-1.0); MONOCYTES % (AUTO) 9.1 % (1.7-9.3); NEUTROPHILS % (AUTO) 64.1 % (42.2-75.2); PLATELET COUNT (AUTO) 183 K/uL (140-450); RED BLOOD CELL COUNT(AUTO) 5.11 MIL/uL (4.20-5.40); WHITE BLOOD COUNT (AUTO) 7.8 K/uL (4.8-10.8)
[2021-05-29 06:18] LABS: ANION GAP 20.3 (8-16); CARBON DIOXIDE 20.2 mmol/L (21-32); CREATININE 0.7 mg/dL (0.6-1.3); POTASSIUM 4.5 mmol/L (3.5-5.1)
[2021-05-29] MEDS: BLOOD GLUCOSE MONITORING 1 DEV DEV FS SCH ×4 (06:41→21:00)
[2021-05-29] MEDS: INSULIN LISPRO SLIDING SCALE 100 UNITS/ML VIAL SUBQ PRN ×4 (06:42→23:30)
[2021-05-29 06:53] LABS: MAGNESIUM 1.9 mg/dL (1.8-2.4); PHOSPHORUS 3.1 mg/dL (2.5-4.9)
--- NOTE | 2021-05-29 07:38 | NUR ---
report given to day shift nurse for continuity of care
[2021-05-29 08:00] VITALS: BP 104/44
--- NOTE | 2021-05-29 08:00 | NUR ---
NURSE REPORT Report obtained fo night nurse Black at 0738 and this nurse assume care of patient. Received patient awake and alert. No c/o pain. VSS. Afeb. Side rails elevated x 2. BG this am 167 and night nurse reported gave the coverage already.
[2021-05-29] MEDS: PREGABALIN 25 MG CAP PO SCH ×2 (09:01→21:00)
[2021-05-29] MEDS: GABAPENTIN 300 MG CAP PO SCH ×3 (09:02→18:08)
--- NOTE | 2021-05-29 13:00 | NUR ---
NURSE CARE BG BEFORE LUNCH 281- GIVEN 6 UNIT HUMALOG. HAD REFUSED THE FISH WITH LUNCH, BUT TOOK CHICKEN.
[2021-05-29 15:07] VITALS: BP 116/69
--- NOTE | 2021-05-29 15:32 | NUR ---
DC PLANNING: PATIENT KNOWN TO ME FROM PRIOR ADMISSION. COMES FROM [facility] ([phone]), PATIENT ON GFR AND FOOD STAMPS, AMBULATES WITH A FWW, OTHERWISE INDEPENDENT. MARY ANN SPOKE WITH THE FOREPART LASTER FOR THE FACILITY, EMIL ([phone]) TO ASK IF PATIENT CAN DC BACK TO [facility] WITH HOME HEALTH AND IV ABX. EMIL WILL CALL MARY ANN WITH ANSWER. MARY ANN WILL FOLLOW FOR NEEDS. Addendum: 05/29/21 at 1536 by Annie Vidal CM DC PLANNING: CALL BACK FROM [facility], PATIENT CANNOT GO BACK TO [facility] ON IV ABX. MARY ANN WILL FOLLOW FOR NEEDS.
--- NOTE | 2021-05-29 18:00 | NUR ---
NURSE CARE MEDICATED FOR PAIN WITH MORPHINE 2 MG AT 0924 AND 1507 WITH RELIEF. NO C/O PAIN AT 1800.
--- NOTE | 2021-05-29 19:47 | NUR ---
NURSE REPORT Report given to night nurse Janice to assume care of patient. When patient was given insulin at 1800, no mention of need for pain med. But she told this night nurse she has been asking for pain med for hours. Morphine 2 mg IVP given at 1500. BG before dinner 152- received 2 units of Humalog. Meals taken 100%. Marietta Shukla RN
[2021-05-29 20:04] VITALS: BP 130/74
[2021-05-30] MEDS: MORPHINE SULFATE 2 MG/ML SYR IVP PRN ×6 (00:43→21:28)
--- NOTE | 2021-05-30 00:53 | NUR ---
pt asked morphine and sleeping pill both are given , i will reassess the pt in 1/2 an hr , she refused ivf
[2021-05-30 01:46] VITALS: BP 125/69
--- NOTE | 2021-05-30 01:56 | NUR ---
pt verbalizes relief of pain
[2021-05-30] MEDS: BLOOD GLUCOSE MONITORING 1 DEV DEV FS SCH ×4 (06:38→21:49)
[2021-05-30] MEDS: INSULIN LISPRO SLIDING SCALE 100 UNITS/ML VIAL SUBQ PRN ×4 (06:39→23:05)
[2021-05-30] MEDS: NACL 0.9% 1,000 ML IV SCH ×2 (08:00→16:55)
[2021-05-30 08:54] LABS: BASOPHILS # (AUTO) 0.1 K/uL (0.00-0.22); BASOPHILS % (AUTO) 0.7 % (0.0-2.0); EOSINOPHILS # (AUTO) 0.1 K/uL (0-0.4); EOSINOPHILS % (AUTO) 1.2 % (0.0-4.0); HEMATOCRIT 37.4 % (36-48); HEMOGLOBIN 12.3 g/dL (12.0-16.0); LYMPHOCYTES # (AUTO) 2.2 K/uL (2.5-16.5); LYMPHOCYTES % (AUTO) 27.8 % (20.5-51.1); MEAN CORPUSCULAR HEMOGLOBIN 25 pg (27-31); MEAN CORPUSCULAR HGB CONC 33 g/dL (33-37); MEAN CORPUSCULAR VOLUME 75.3 fL (80-94); MONOCYTES # (AUTO) 0.7 K/uL (0.8-1.0); MONOCYTES % (AUTO) 8.4 % (1.7-9.3); NEUTROPHILS # (AUTO) 4.9 K/uL (1.8-7.7); NEUTROPHILS % (AUTO) 61.9 % (42.2-75.2); PLATELET COUNT (AUTO) 171 K/uL (140-450); RED BLOOD CELL COUNT(AUTO) 4.96 MIL/uL (4.20-5.40); RED CELL DISTRIBUTION WIDTH 17.2 % (11.6-13.7); WHITE BLOOD COUNT (AUTO) 7.9 K/uL (4.8-10.8)
[2021-05-30] MEDS: PREGABALIN 25 MG CAP PO SCH ×2 (09:01→21:28)
[2021-05-30] MEDS: GABAPENTIN 300 MG CAP PO SCH ×3 (09:01→17:54)
[2021-05-30 09:02] LABS: ANION GAP 11.9 (8-16); CARBON DIOXIDE 26.3 mmol/L (21-32); CREATININE 0.8 mg/dL (0.6-1.3); MAGNESIUM 1.8 mg/dL (1.8-2.4); PHOSPHORUS 2.7 mg/dL (2.5-4.9); POTASSIUM 4.2 mmol/L (3.5-5.1)
[2021-05-30] MEDS: MEROPENEM 1,000 MG in NACL 0.9% 100 ML IV SCH ×2 (13:00→21:28)
[2021-05-30 20:30] VITALS: BP 110/66
[2021-05-30] MEDS: INSULIN LANTUS 100 UNITS/ML 10 ML VIAL SUBQ SCH (21:51)
[2021-05-31] MEDS: NACL 0.9% 1,000 ML IV SCH ×2 (02:55→12:55)
[2021-05-31] MEDS: MORPHINE SULFATE 2 MG/ML SYR IVP PRN ×7 (03:05→23:48)
--- NOTE | 2021-05-31 03:30 | NUR ---
PT MEDICATED FOR PAIN LEVEL 06/02. EXPLAIN TO PT TO PLEASE BE PATIENT WITH THE NURSES ARRIVAL, SHE REQUEST PAIN MEDS. PT BECAME IRATE AND STARTED SCREAMING PT BECAME VERY ANGRY YELLING GET OUT OF MY ROOM, MAKING COMMENTS 'THAT THEY NEED TO HIRE MORE NURSES.' WHEN ASKED TO DESCRIBE HER PAIN AND TO STATE PAIN LEVEL POST PAIN MED ADMINISTRATION, SHE REFUSED TO GIVE PAIN LEVEL AND AGAIN WAS VERY RUDE YELLING, THEN COMMENTED TO ME, THE NURSE THAT I WAS BEING RUDE TO HER, BECAUSE I ASKED HER TO BE PATIENT, STATING "I DON'T NEED A LECTURE, I JUST WANT MY PAIN MED". STATING I WANT THE [employer] TO MEDICATE ME, NOT YOU!COLLEAGUE THAT HAD HER THE PREVIOUS NIGHT, STATED THIS IS HER BEHAVIOR YESTERDAY,TOWARDS HER WELL. [facility]G [employer] CALLED AND INFORMED OF INCIDENCE, AND THE POSSIBILITY OF HER REQUESTING HIM TO MEDICATE HER.
[2021-05-31] MEDS: MEROPENEM 1,000 MG in NACL 0.9% 100 ML IV SCH ×3 (05:47→21:00)
[2021-05-31 06:23] LABS: BASOPHILS # (AUTO) 0.1 K/uL (0.00-0.22); BASOPHILS % (AUTO) 0.7 % (0.0-2.0); EOSINOPHILS # (AUTO) 0.1 K/uL (0-0.4); EOSINOPHILS % (AUTO) 1.3 % (0.0-4.0); HEMATOCRIT 38.4 % (36-48); HEMOGLOBIN 12.1 g/dL (12.0-16.0); LYMPHOCYTES # (AUTO) 2.1 K/uL (2.5-16.5); LYMPHOCYTES % (AUTO) 28.3 % (20.5-51.1); MEAN CORPUSCULAR HEMOGLOBIN 25 pg (27-31); MEAN CORPUSCULAR HGB CONC 32 g/dL (33-37); MEAN CORPUSCULAR VOLUME 79.3 fL (80-94); MONOCYTES # (AUTO) 0.6 K/uL (0.8-1.0); MONOCYTES % (AUTO) 7.9 % (1.7-9.3); NEUTROPHILS # (AUTO) 4.6 K/uL (1.8-7.7); NEUTROPHILS % (AUTO) 61.8 % (42.2-75.2); PLATELET COUNT (AUTO) 170 K/uL (140-450); RED BLOOD CELL COUNT(AUTO) 4.85 MIL/uL (4.20-5.40); RED CELL DISTRIBUTION WIDTH 17.6 % (11.6-13.7); WHITE BLOOD COUNT (AUTO) 7.4 K/uL (4.8-10.8)
[2021-05-31 06:24] LABS: ANION GAP 8.4 (8-16); CARBON DIOXIDE 30.5 mmol/L (21-32); CREATININE 0.8 mg/dL (0.6-1.3); POTASSIUM 3.9 mmol/L (3.5-5.1)
[2021-05-31] MEDS: INSULIN LISPRO SLIDING SCALE 100 UNITS/ML VIAL SUBQ PRN ×4 (06:44→22:40)
[2021-05-31] MEDS: BLOOD GLUCOSE MONITORING 1 DEV DEV FS SCH ×4 (06:44→21:00)
--- NOTE | 2021-05-31 07:15 | NUR ---
MED PASS DONE , PT WAS COOPERATIVE W/ CARE. BS FS DONE WAS 236. REPORT TO AM RN. PT STATUS UNCHANGED ASLEEP AT INTERVAL, NAD NOTED, RESP REG NON-LABORED.
[2021-05-31] MEDS: GABAPENTIN 300 MG CAP PO SCH ×3 (09:15→16:30)
[2021-05-31] MEDS: PREGABALIN 25 MG CAP PO SCH ×2 (09:15→22:48)
[2021-05-31] MEDS: TAMSULOSIN 0.4 MG CAP PO SCH (09:15)
[2021-05-31 12:00] VITALS: BP 111/59
[2021-05-31 20:00] VITALS: BP 135/78
--- NOTE | 2021-05-31 20:00 | NUR ---
RECEIVED PATIENT ALERT AND ORIENTED X 4, ABLE TO MAKE NEEDS KNOWN. PATIENT GOES TO THE RESTROOM WITH MIN TO NO ASSIST NEEDED. PATIENT C/O PAIN 8/10, ACUTE ON THE LOWER ABDOMEN. PATIENT IS GETTING MORPHINE 2MG EVERY THREE HOURS. MORPHINE 2MG/ML IS GIVEN PER ORDER. PATIENT'S BREATHING IS REGULAR AND UNLABORED WITH NO C/O SOB AND NO S/S OF RESPIRATORY DISTRESS. PIV TO LFA IS PATENT. PATIENT REFUSES CONTINUOUS IVF. EXPLAINED THE RISK AND BENEFITS OF THE IVF AND OFFERED IT THREE TIMES BUT PATIENT STILL REFUSED. PATIENT STATED, "I DON'T TO BE HOOKED ON ANY IV BECAUSE IT'S UNCOMFORTABLE AND STRESSING ME." EXPLAINED TO THE PATIENT THAT SHE CAN CALL ANYTHING FOR ANY ASSISTANCE NEEDED SPECIALLY WHEN SHE GOES TO THE RESTROOM BUT STILL REFUSED.
--- NOTE | 2021-05-31 20:35 | NUR ---
PATIENT IS COMFORTABLE AT THIS TIME. PAIN IS 0/10. MEDICATION IS EFFECTIVE. VSS.
[2021-05-31] MEDS: INSULIN LANTUS 100 UNITS/ML 10 ML VIAL SUBQ SCH (21:00)
--- NOTE | 2021-05-31 21:30 | NUR ---
PIV INFILTRATED. PATIENT C/O PAIN DURING FLUSHING. ATTEMPTED TO STICK PATIENT FOR PIV BUT UNSUCCESSFUL. INSTRUCTED PATIENT WILL ASK A CO-WORKER TO TRY TO INSERT PIV. PATIENT VERBALIZED UNDERSTANDING.
--- NOTE | 2021-05-31 22:50 | NUR ---
CO-WORKER INSERTED PIV ON THE RESIDENT USING ASEPTIC TECHNIQUE. ESTABLISHED A 24 GAUGE X 1 ON THE LEFT SHOULDER WITH GOOD BLOOD RETURN. FLUSHED LINE WITHOUT RESISTANCE W/ 5CC SALINE SOLUTION. SECURED LINE W/ TAPE. CLIENT TOLERATED IV INSERTION WELL.
--- NOTE | 2021-05-31 23:50 | NUR ---
PATIENT C/O ACUTE PAIN 7/10 ON THE LOWER ABDOMEN/BLADDER AREA. MORPHINE IS ORDERED Q 3 HRS PRN BUT PATIENT TAKES MORPHINE EVERY THREE HOURS. MORPHINE 2MG IS GIVEN PER ORDER. PATIENT IS ALERT AND ORIENTED WITH NO S/S OR RESPIRATORY DISTRESS NOTED.
--- NOTE | 2021-06-01 00:30 | NUR ---
PATIENT IS COMFORTABLE AT THIS TIME. PAIN 0/10, MEDICATION IS EFFECTIVE.
[2021-06-01] MEDS: MORPHINE SULFATE 2 MG/ML SYR IVP PRN ×5 (03:45→15:50)
--- NOTE | 2021-06-01 03:50 | NUR ---
PATIENT C/O LOWER ABDOMEN 05/02, ACUTE. MORPHINE GIVEN PRESCRIBED. RESIDENT'S VSS STABLE WITH NO S/S OR RESPIRATORY DISTRESS NOTED.
--- NOTE | 2021-06-01 04:20 | NUR ---
PATIENT IS QUIET WITH EYES CLOSED, NO S/S OF INFECTION, NO MOANING OR GROANING. MEDICATION IS EFFECTIVE.
[2021-06-01 05:16] VITALS: BP 128/70
[2021-06-01 06:35] LABS: ANION GAP 11.2 (8-16); CARBON DIOXIDE 27.1 mmol/L (21-32); CREATININE 0.7 mg/dL (0.6-1.3); POTASSIUM 4.3 mmol/L (3.5-5.1)
[2021-06-01 06:40] LABS: BASOPHILS % (AUTO) 0.7 % (0.0-2.0); EOSINOPHILS # (AUTO) 0.1 K/uL (0-0.4); EOSINOPHILS % (AUTO) 1.2 % (0.0-4.0); HEMATOCRIT 36.1 % (36-48); HEMOGLOBIN 11.8 g/dL (12.0-16.0); LYMPHOCYTES # (AUTO) 2.2 K/uL (2.5-16.5); LYMPHOCYTES % (AUTO) 30.7 % (20.5-51.1); MEAN CORPUSCULAR HEMOGLOBIN 25 pg (27-31); MEAN CORPUSCULAR HGB CONC 33 g/dL (33-37); MEAN CORPUSCULAR VOLUME 75.7 fL (80-94); MONOCYTES # (AUTO) 0.5 K/uL (0.8-1.0); MONOCYTES % (AUTO) 7.4 % (1.7-9.3); NEUTROPHILS # (AUTO) 4.3 K/uL (1.8-7.7); PLATELET COUNT (AUTO) 166 K/uL (140-450); RED BLOOD CELL COUNT(AUTO) 4.77 MIL/uL (4.20-5.40); RED CELL DISTRIBUTION WIDTH 16.8 % (11.6-13.7); WHITE BLOOD COUNT (AUTO) 7.2 K/uL (4.8-10.8)
[2021-06-01] MEDS: MEROPENEM 1,000 MG in NACL 0.9% 100 ML IV SCH ×2 (06:44→13:00)
[2021-06-01] MEDS: BLOOD GLUCOSE MONITORING 1 DEV DEV FS SCH ×2 (07:01→11:48)
[2021-06-01] MEDS: INSULIN LISPRO SLIDING SCALE 100 UNITS/ML VIAL SUBQ PRN ×2 (07:02→12:51)
--- NOTE | 2021-06-01 07:30 | NUR ---
PT RECEIVED FROM HAND CANDY CUTTER RN. PT RESTING IN BED EYES CLOSED BREATHING IS SYMMETRICAL
[2021-06-01] MEDS: NACL 0.9% 1,000 ML IV SCH ×2 (08:14→08:55)
[2021-06-01] MEDS: TAMSULOSIN 0.4 MG CAP PO SCH (09:46)
[2021-06-01] MEDS: PREGABALIN 25 MG CAP PO SCH (09:46)
[2021-06-01] MEDS: GABAPENTIN 300 MG CAP PO SCH ×2 (09:46→12:51)
--- NOTE | 2021-06-01 09:58 | NUR ---
MEDICATIONS GIVEN PER MD ORDER. PT EDUCATED NO S/SX OF DISTRESS AT THIS TIME
--- NOTE | 2021-06-01 11:30 | NUR ---
PT BG [phone]
--- NOTE | 2021-06-01 11:49 | NUR ---
PT REFUSED LINEN CHANGE , BED BATH JITENDRA CARE, ORAL CARE OR ANY ASSISTANCE.
[2021-06-01] MEDS ORDERED: AMOX-999 PO (11:56)
[2021-06-01] MEDS ORDERED: TAMS0.4C96 PO (11:56)
--- NOTE | 2021-06-01 12:00 | NUR ---
MEDICATIONS GIVEN PER MD ORDER. PT EDUCATED , ALL SAFETY MEASURES IN PLACE
[2021-06-01 12:33] VITALS: BP 123/89
--- NOTE | 2021-06-01 14:09 | NUR ---
DISCHARGE INSTRUCTIONS COMPLETE. PT REQUEST PAIN MEDICATIONS AWARE
--- NOTE | 2021-06-01 16:06 | NUR ---
PATIENT LEFT UNIT VIA WHEEL CHAIR. PT IN STABLE CONDITION.
[2021-06-01] MEDS ORDERED: PHEN-1593 PO (16:28)
[2021-06-01] MEDS ORDERED: ACET-9525 PO (19:50)
--- NOTE | 2021-06-04 02:09 | NUR ---
LATE ENTRY- 0.9% NS IVF DISCONTINED AT 2250 AND MEROPENEM IVPB DISCONTINUED AT 221
== END 2021-06-01 16:00 | disposition home or self-care (01) | DRG 463 ==
LOC: MED 19:45 → MTU 23:10
PROVIDERS: ADMIT Family Medicine; ATTEND Family Medicine
DX: N13.6 Pyonephrosis (principal); E11.42 Type 2 diabetes mellitus with diabetic polyneuropathy; E44.1 Mild protein-calorie malnutrition; Z20.822 Contact with and (suspected) exposure to COVID-19; D50.9 Iron deficiency anemia, unspecified; E11.65 Type 2 diabetes mellitus with hyperglycemia; E88.09 Other disorders of plasma-protein metabolism, not elsewhere classified; E78.00 Pure hypercholesterolemia, unspecified; E03.9 Hypothyroidism, unspecified; E87.1 Hypo-osmolality and hyponatremia; B96.20 Unspecified Escherichia coli [E. coli] as the cause of diseases classified elsewhere; Z16.12 Extended spectrum beta lactamase (ESBL) resistance; E66.9 Obesity, unspecified; Z88.8 Allergy status to other drugs, medicaments and biological substances; Z68.35 Body mass index [BMI] 35.0-35.9, adult; Z79.4 Long term (current) use of insulin; Z79.899 Other long term (current) drug therapy; Z87.442 Personal history of urinary calculi; Z22.322 Carrier or suspected carrier of Methicillin resistant Staphylococcus aureus; Z88.6 Allergy status to analgesic agent
CPT/HCPCS: 36415; 71045; 76770; 80048; 80053; 80305; 81001; 82150; 82948; 83036; 83605; 83690; 83735; 83880; 84100; 84439; 84443; 84484; 85025; 85610; 85730; 87040; 87086; 96365; 96375; 96376; 99285; J0696; J1644; J1815; J2185; J2270; J2405; J7060

== ENCOUNTER 2021-06-26 11:01 | Emergency (ER) | payer MEDICAID, SELFPAY ==
[~2021-06-26] VITALS: Ht 167.6 cm; Wt 90.7 kg
[~2021-06-26 11:01] MED LIST changes: -ACET-5629 PO; +ACET-9525 PO; -ACET-9527 PO; +AMOX-999 PO; -AZIT250T11 PO; +BACL10TA4 PO; -CEPH250C16 PO; +GABA300C PO; +LYR75 PO; -ONDA-24 PO; +PHEN-1593 PO; -PRED20TA5 PO; +SLIDE SUBQ
[2021-06-26 11:05] VITALS: BP 120/80
--- NOTE | 2021-06-26 11:05 | NUR ---
PT BIBA BLS AND PLACED IN COVID TENT. PT TESTED + FOR COVID 06/15/21. PT HAS A RELEASE TO RETURN TO A [facility] BUT HAS NOT BEEN RETESTED FOR COVID.
[2021-06-26] MEDS ORDERED: ACETAMINOPHEN EXTRA STRENGTH 500 MG TAB PO ONE (12:35)
[2021-06-26 13:14] VITALS: BP 120/80
--- NOTE | 2021-06-26 13:14 | NUR ---
CALLED PT IN TENT, NO ANSWER AT THIS TIME
--- NOTE | 2021-06-26 13:14 | NUR ---
PATIENT ELOPED FROM FACILITY. DISCHARGE INSTRUCTIONS NOT GIVEN TO PATIENT. VICENTE BRIGHT NOTIFIED.
[2021-06-26 14:03] LABS: APPEARANCE,URINE CLEAR (CLEAR); BILIRUBIN,URINE NEGATIVE (NEGATIVE); BLOOD, URINE NEGATIVE (NEGATIVE); COLOR,URINE YELLOW (YELLOW); LEUKOCYTE ESTERASE ,URINE NEGATIVE (NEGATIVE); NITRITE, URINE NEGATIVE (NEGATIVE); UGLUCOSE 3+ (NEGATIVE)
[2021-06-26 14:05] LABS: RBC,URINE 0-5 /HPF (0-5); WBC,URINE 0-5 /HPF (0-5)
== END 2021-06-26 13:14 | disposition left against medical advice (07) ==
LOC: MED 11:01
DX: R10.9 Unspecified abdominal pain (principal); E11.9 Type 2 diabetes mellitus without complications; Z87.448 Personal history of other diseases of urinary system; Z88.6 Allergy status to analgesic agent; Z53.21 Procedure and treatment not carried out due to patient leaving prior to being seen by health care provider
CPT/HCPCS: 81001; 99283

== ENCOUNTER 2021-07-24 14:24 | Emergency (ER) | payer MEDICAID ==
[~2021-07-24] VITALS: Ht 165.1 cm; Wt 108.9 kg
[2021-07-24 14:30] VITALS: BP 151/86
--- NOTE | 2021-07-24 14:33 | NUR ---
41 Y/O F BIBA FROM STREET WALKING TO STORE, C/O 8/10 R FLANK PAIN, SHARP/CONSTANT THAT RADIATES TO LOWER BACK, N&V. C/O DYSURIA AND CLOUDY URINE. DENIES HEMATURIA AT THIS TIME. A&OX4, STEADY GAIT, PLACED IN GOWN, URINE SAMPLE COLLECTED. PMH: KIDNEY STONES, TYPE 2 DM ALLERGY: MOTRIN, KETOROLAC (THROAT SWELLING)
--- NOTE | 2021-07-24 14:38 | NUR ---
URINE SAMPLE COLLECTED AND TAKEN TO LAB
[2021-07-24] MEDS: ONDANSETRON 4 MG ODT PO ONE (14:43)
[2021-07-24] MEDS: HYDROcodone/APAP 5/325 MG 1 TAB TAB PO ONE (14:44)
--- NOTE | 2021-07-24 14:44 | NUR ---
ULTRASOUND AT BEDSIDE.
[2021-07-24 15:07] LABS: BASOPHILS # (AUTO) 0.1 K/uL (0.00-0.22); EOSINOPHILS % (AUTO) 0.9 % (0.0-4.0); HEMATOCRIT 38.1 % (36-48); HEMOGLOBIN 12.7 g/dL (12.0-16.0); LYMPHOCYTES # (AUTO) 1.2 K/uL (2.5-16.5); LYMPHOCYTES % (AUTO) 23.3 % (20.5-51.1); MEAN CORPUSCULAR HEMOGLOBIN 25 pg (27-31); MEAN CORPUSCULAR HGB CONC 33 g/dL (33-37); MONOCYTES # (AUTO) 0.3 K/uL (0.8-1.0); MONOCYTES % (AUTO) 6.5 % (1.7-9.3); NEUTROPHILS # (AUTO) 3.7 K/uL (1.8-7.7); NEUTROPHILS % (AUTO) 68.3 % (42.2-75.2); PLATELET COUNT (AUTO) 162 K/uL (140-450); RED BLOOD CELL COUNT(AUTO) 5.02 MIL/uL (4.20-5.40); RED CELL DISTRIBUTION WIDTH 16.6 % (11.6-13.7); WHITE BLOOD COUNT (AUTO) 5.4 K/uL (4.8-10.8)
[2021-07-24 15:10] LABS: APPEARANCE,URINE CLEAR (CLEAR); BILIRUBIN,URINE NEGATIVE (NEGATIVE); BLOOD, URINE NEGATIVE (NEGATIVE); COLOR,URINE YELLOW (YELLOW); LEUKOCYTE ESTERASE ,URINE NEGATIVE (NEGATIVE); NITRITE, URINE NEGATIVE (NEGATIVE); UGLUCOSE 3+ (NEGATIVE)
[2021-07-24 15:12] LABS: ANION GAP 11.7 (8-16); CARBON DIOXIDE 27.3 mmol/L (21-32); CREATININE 1.1 mg/dL (0.6-1.3)
--- NOTE | 2021-07-24 15:52 | NUR ---
MD AT BEDSIDE SPEAKING WITH PATIENT.
[2021-07-24] MEDS: INSULIN REGULAR, HUMAN 100 UNIT/ML VIAL SUBQ SCH (15:59)
--- NOTE | 2021-07-24 16:05 | NUR ---
ACCUCHECK TAKEN, BLOOD SUGAR 349
--- NOTE | 2021-07-24 16:05 | NUR ---
PATIENT GIVEN 5U OF HUMULIN R TO LEFT UPPER ARM.
[2021-07-24 16:58] VITALS: BP 116/63
--- NOTE | 2021-07-24 16:58 | NUR ---
Patient discharged with v/s stable. Written and verbal after care instructions given and explained. Patient verbalized understanding. Ambulatory with steady gait. All questions addressed prior to discharge. Advised to follow up with PMD.
[2021-07-31] MEDS ORDERED: LANTUS SUBQ (16:01)
[2021-07-31] MEDS ORDERED: PHEN-1593 PO (16:03)
[2021-07-31] MEDS ORDERED: METF-988 PO (16:03)
== END 2021-07-24 16:58 | disposition home or self-care (01) ==
LOC: MED 14:24
DX: R10.9 Unspecified abdominal pain (principal); R11.2 Nausea with vomiting, unspecified; E11.65 Type 2 diabetes mellitus with hyperglycemia
CPT/HCPCS: 36415; 76770; 80048; 81003; 81025; 85025; 96372; 99284; J1815; Q0092; Q0162

== ENCOUNTER 2021-07-28 07:27 | Emergency (ER) | payer MEDICAID ==
[~2021-07-28] VITALS: Ht 165.1 cm; Wt 104.3 kg
[2021-07-28 07:34] VITALS: BP 126/81
--- NOTE | 2021-07-28 07:39 | NUR ---
FAUSTO. HANDED ON URINE CUP.
--- NOTE | 2021-07-28 08:42 | NUR ---
PATIENT LEFT WITHOUT BEING SEEN BY . NO FURTHER CARE PROVIDED FOR PATIENT.
[2021-07-31] MEDS ORDERED: LANTUS SUBQ (16:01)
[2021-07-31] MEDS ORDERED: METF-988 PO (16:03)
[2021-07-31] MEDS ORDERED: PHEN-1593 PO (16:03)
== END 2021-07-28 08:42 | disposition left against medical advice (07) ==
LOC: MED 07:27
DX: Z53.21 Procedure and treatment not carried out due to patient leaving prior to being seen by health care provider (principal)

== ENCOUNTER 2021-08-24 11:40 | Emergency (ER) | payer MEDICAID, SELFPAY ==
[~2021-08-24] VITALS: Ht 162.6 cm; Wt 104.3 kg
[~2021-08-24 11:40] MED LIST changes: -AMOX-999 PO; -INSU100I7 SQ; +LANTUS SUBQ; -LYR75 PO; +METF-1243 PO; -SLIDE SUBQ
[2021-08-24 11:58] VITALS: BP 158/79
--- NOTE | 2021-08-24 11:58 | NUR ---
PT AMBULATED TO ER BED 4
--- NOTE | 2021-08-24 12:01 | NUR ---
41 Y/O FEMALE C/O R FLANK PAIN WITH N/V X1 HR AGO. PT ALSO C/O DYSURIA, URGENCY AND FREQUENCY X4 DAYS. DENIES HEMATURIA. DENIES FEVER/CHILLS. PT WAS ADMITTED HERE 07/28-08/01 FOR PANCREATITIS. PT REPORTS HX OF KIDNEY STONES/INFECTION AND STATES IT FEELS THE SAME. 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
--- NOTE | 2021-08-24 12:07 | NUR ---
PT AMBULATED TO RESTROOM FOR URINE SAMPLE WITH STEADY GAIT
[2021-08-24] MEDS ORDERED: ONDANSETRON 4 MG/2 ML VIAL IVP ONE (12:25)
[2021-08-24] MEDS ORDERED: NACL 0.9% 1,000 ML IV ONE ×3 (12:25→13:40)
[2021-08-24] MEDS ORDERED: MORPHINE SULFATE 2 MG/ML SYR IVP ONE ×2 (12:25→13:50)
--- NOTE | 2021-08-24 12:30 | NUR ---
DR JOHN AT BEDSIDE EVALUATING PT
--- NOTE | 2021-08-24 12:48 | NUR ---
IVP/IVF MEDS GIVEN-NADR AT THIS TIME
[2021-08-24 12:52] LABS: BASOPHILS # (AUTO) 0.1 K/uL (0.00-0.22); BASOPHILS % (AUTO) 1.2 % (0.0-2.0); EOSINOPHILS % (AUTO) 0.6 % (0.0-4.0); HEMATOCRIT 38.8 % (36-48); HEMOGLOBIN 12.8 g/dL (12.0-16.0); LYMPHOCYTES # (AUTO) 1.2 K/uL (2.5-16.5); LYMPHOCYTES % (AUTO) 16.5 % (20.5-51.1); MEAN CORPUSCULAR HEMOGLOBIN 25 pg (27-31); MEAN CORPUSCULAR HGB CONC 33 g/dL (33-37); MEAN CORPUSCULAR VOLUME 75.5 fL (80-94); MONOCYTES # (AUTO) 0.5 K/uL (0.8-1.0); NEUTROPHILS # (AUTO) 5.7 K/uL (1.8-7.7); NEUTROPHILS % (AUTO) 75.7 % (42.2-75.2); PLATELET COUNT (AUTO) 208 K/uL (140-450); RED BLOOD CELL COUNT(AUTO) 5.15 MIL/uL (4.20-5.40); RED CELL DISTRIBUTION WIDTH 17.1 % (11.6-13.7); WHITE BLOOD COUNT (AUTO) 7.5 K/uL (4.8-10.8)
[2021-08-24 13:23] LABS: ALBUMIN 3.6 g/dL (3.4-5.0); ANION GAP 14.3 (8-16); CARBON DIOXIDE 24.3 mmol/L (21-32); POTASSIUM 4.6 mmol/L (3.5-5.1); TOTAL BILIRUBIN 0.6 mg/dL (0.0-1.0)
[2021-08-24] MEDS ORDERED: INSULIN REGULAR, HUMAN 100 UNIT/ML VIAL SUBQ ONE (13:45)
[2021-08-24] MEDS ORDERED: cefTRIAXone 2,000 MG in DEXTROSE 5% 100 ML IV ONE (13:55)
[2021-08-24] MEDS ORDERED: cefTRIAXone 2,000 MG VIAL ONE (14:01)
[2021-08-24] MEDS ORDERED: ONDA-188 SL (14:05)
[2021-08-24] MEDS ORDERED: CEFP200T20 PO (14:06)
[2021-08-24] MEDS ORDERED: ACET-503 PO (14:06)
[2021-08-24 14:19] VITALS: BP 139/82
[2021-08-24 14:23] LABS: APPEARANCE,URINE CLEAR (CLEAR); BILIRUBIN,URINE NEGATIVE (NEGATIVE); BLOOD, URINE NEGATIVE (NEGATIVE); COLOR,URINE YELLOW (YELLOW); LEUKOCYTE ESTERASE ,URINE TRACE (NEGATIVE); NITRITE, URINE POSITIVE (NEGATIVE); UGLUCOSE 2+ (NEGATIVE)
--- NOTE | 2021-08-24 15:01 | NUR ---
PT RESTING IN BED WITH EVEN AND UNLABORED RESPIRATIONS. PT STATES PAIN IS MUCH BETTER. FLUIDS STILL INFUSING
--- NOTE | 2021-08-24 16:05 | NUR ---
Patient discharged with v/s stable. Written and verbal after care instructions ABOUT HYPERGLYCEMIA AND ACUTE URINARY RETENTION given and explained. Patient alert, oriented and verbalized understanding of instructions. Ambulatory with steady gait. All questions addressed prior to discharge. ID band removed. Patient advised to follow up with PMD. Rx of ACETAMINOPHEN-CODEINE, CEFPODOXIME PROXETIL AND ZOFRAN given. Patient educated on indication of medication including possible reaction and side effects. Opportunity to ask questions provided and answered.
== END 2021-08-24 16:05 | disposition home or self-care (01) ==
LOC: MED 11:40
DX: N39.0 Urinary tract infection, site not specified (principal); N20.0 Calculus of kidney; E11.65 Type 2 diabetes mellitus with hyperglycemia; Z79.899 Other long term (current) drug therapy; Z79.4 Long term (current) use of insulin; Z79.891 Long term (current) use of opiate analgesic; Z88.6 Allergy status to analgesic agent
CPT/HCPCS: 36415; 76770; 80053; 81001; 81025; 85025; 87086; 96361; 96365; 96372; 96375; 96376; 99285; J0696; J1815; J2270; J2405; Q0092; J7030